=== PATIENT | female | born 1940 | race Hispanic/Latino ===

== ENCOUNTER 2018-08-26 19:49 | Inpatient (IN) | payer MEDICARE ==
[~2018-08-26] VITALS: Ht 162.6 cm; Wt 99.5 kg
[2018-08-26] MEDS ORDERED: SODIUM CHLORIDE 0.9% 1000ML 1,000 ML IV ONE (20:15)
[2018-08-26 20:39] LABS: BASOPHILS % 0.3 % (0.0-1.0); EOSINOPHILS # (AUTO) 0.1 (0.0-0.4); EOSINOPHILS % 1.1 % (0.0-6.0); HEMATOCRIT 23.7 % (34.2-44.1); HEMOGLOBIN 7.4 g/dL (12.0-16.0); LYMPHOCYTES # (AUTO) 1.6 (1.0-3.2); LYMPHOCYTES % 12.9 % (18.0-39.1); MEAN CORPUSCULAR HEMOGLOBIN 31.8 pg (28-32); MEAN CORPUSCULAR HGB CONC 31.2 g/dL (31-35); MEAN CORPUSCULAR VOLUME 101.7 fL (81-99); MONOCYTES % 7.7 % (4.4-11.3); NEUTROPHILS # (AUTO) 9.6 (2.1-6.9); NEUTROPHILS % 77.3 % (38.7-80.0); PLATELET COUNT 166 x10e3/uL (140-360); RED BLOOD COUNT 2.33 x10e6/uL (3.6-5.1); RED CELL DISTRIBUTION WIDTH 15.7 % (11.7-14.4)
[2018-08-26] MEDS ORDERED: ATENOLOL25 MG (20:40)
[2018-08-26] MEDS ORDERED: ESIDRIX25 MG PO (20:42)
[2018-08-26] MEDS ORDERED: DILTIAZEM 24HR240 MG PO (20:42)
[2018-08-26] MEDS ORDERED: REQUIP2 MG PO (20:44)
[2018-08-26] MEDS ORDERED: PANTOPRAZOLE 40 MG 10ML VIAL IV NR (20:45)
[2018-08-26 20:53] LABS: INR 1.03; PROTHROMBIN TIME 14.4 seconds (11.9-14.5)
[2018-08-26 20:54] LABS: PARTIAL THROMBOPLASTIN TIME 24.6 seconds (23.8-35.5)
[2018-08-26 21:03] LABS: ALANINE AMINOTRANSFERASE 15 IU/L (0-55); ALBUMIN 2.6 g/dL (3.5-5.0); ALBUMIN/GLOBULIN RATIO 0.7 (0.8-2.0); ALKALINE PHOSPHATASE 131 IU/L (40-150); BLOOD UREA NITROGEN 53 mg/dL (7-26); BUN/CREATININE RATIO 41 (6-25); CALCIUM 8.7 mg/dL (8.4-10.2); CARBON DIOXIDE 21 mmol/L (22-29); CHLORIDE 102 mmol/L (98-107); CREATINE KINASE 43 IU/L (29-168); CREATININE, SERUM 1.28 mg/dL (0.57-1.11); EST GLOMERULAR FILTRATION RATE 41 ML/MIN (60-); GLUCOSE 159 mg/dL (74-118); SODIUM 135 mmol/L (136-145)
--- NOTE | 2018-08-26 21:15 | Diagnostic Imaging Report ---
EXAMINATION: CHEST SINGLE (PORTABLE) INDICATION: Coughing up blood, shortness of breath COMPARISON: None FINDINGS: AP view TUBES and LINES: None. LUNGS: Lungs are well inflated. Lungs are clear. There is no evidence of pneumonia or pulmonary edema. PLEURA: No pleural effusion or pneumothorax. HEART AND MEDIASTINUM: The cardiomediastinal silhouette is unremarkable. BONES AND SOFT TISSUES: No acute osseous lesion. Surgical clips project over the left axilla. UPPER ABDOMEN: No free air under the diaphragm. IMPRESSION: No acute thoracic abnormality. If hemoptysis persists, chest CT with contrast may be obtained for further evaluation. Signed by: DR. Kd Butcher MD on 08/26/2018 9:12 PM
[2018-08-26] MEDS ORDERED: FUROSEMIDE INJ 10 MG/ML 2 ML VIAL IV PRN (21:45)
[2018-08-26] MEDS ORDERED: SODIUM CHLORIDE 0.9% 250ML 250 ML IV ONE (21:45)
[2018-08-26] MEDS ORDERED: OCTREOTIDE ACETATE 0.05 MG/ML AMP IV ONE (22:00)
--- OUTSIDE RECORDS SUMMARY | 2018-08-26 22:09 | XMS REPORT ---
Author Organization Unknown Address [address] [place] [address] Phone [phone] Care Team Providers Care Electronic Prepress Technician Name Role Phone Dennys Sameer Mccarthy Unavailable Unavailable Allergies Code Code System Name Reaction Severity Status Onset Amlodipine Besylate Active 03/20/2016 Medications Name Status Start Date Stop Date atenolol 25 mg tablet Active Not available diltiazem CD 240 mg capsule,extended release 24 hr Active Not available etodolac ER 500 mg tablet,extended release 24 hr Take 1 tablet every day by oral route for 90 days. 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 10/02/2015 History Irritable Bowel Syndrome Active 10/02/2015 History Non-alcoholic Fatty Liver Active 10/02/2015 History Chronic Kidney Disease Stage 3 Active 10/02/2015 History Chronic Renal Impairment Unknown 10/02/2015 History Low Back Pain Active 10/02/2015 History Disorder of Bone Active 10/02/2015 History Spondylolysis Active 10/02/2015 History Elevated Levels of Transaminase & Lactic Acid Dehydrogenase Active 10/02/2015 History Personal History of Primary Malignant Neoplasm of Breast Active 10/02/2015 History Conductive Hearing Loss, Bilateral Active 12/15/2017 Chronic Diastolic Heart Failure Active 12/15/2017 Secondary Hyperparathyroidism Active 12/22/2017 Procedures Date Name Performed by 12/30/2017 US, Echocardiogram, Transthoracic, Complete, W/ Color Flow [facility] [id number] (Work [address]) 12/31/2017 US, Echocardiogram, Transthoracic, Complete, W/ Color Flow [facility] [address] (Work [address]) Notes: 03/20/2016: Tympanoplasty; Surgery Date: 1973 Mastoidectomy; Surgery Date: 1973 S/P L Mastectomy 2* to Breast Ca; Surgery Date: 2002 Bladder suspension; Surgery Date: 2008 S/P Lap Hortencia 2* to Cholelithiasis; Surgery Date: 2009 Lab Results Date Name Specimen Result Interpretation Description Value Range Status Address 12/15/2017 Magnesium, Serum or Plasma Normal Magnesium 2.1 mg/dL 1.5- 2.5 mg/dL Final [facility] Laboratory: [address] [place] [address], [place] 12/15/2017 Phosphorus, Serum or Plasma Normal Phosphate (as Phosphorus) 3.6 mg/dL 2.1-4.3 mg/dL Final [facility] Laboratory: [address] [place] [address], [place] 12/15/2017 CBC W/ Auto Diff Wbc 6.35 x10*3/L 3.98-10.04 x10*3/L Final [facility] Laboratory: [address] Low Rbc 3.44 10*12/L 3.93-5.22 10*12/L Final [facility] Laboratory: [address] Hemoglobin 12.30 g/dL 11.20-15.70 g/dL Final [facility] Laboratory: [address] Hematocrit 35.6 % 34.1-44.9 % Final [facility] Laboratory: [address] High Mcv 103.5 fL 80.0-100.0 fL Final [facility] Laboratory: [address] High Mch 35.8 pg 25.6-32.2 pg Final [facility] Laboratory: [address] Mchc 34.6 g/dL 32.2-35.5 g/dL Final [facility] Laboratory: [address] RDW-SD 48.8 fL 36.4-46.3 fL Final [facility] Laboratory: [address] Low Platelet Count 118.0 k/uL 182.0-369.0 k/uL Final [facility] Laboratory: [address] Mpv 11.5 fL 7.5-11.5 fL Final [facility] Laboratory: [address] [place] High Neut% 81.5 % 34.0-71.1 % Final [facility] Laboratory: [address] [place] Low Lymph% 8.3 % 19.3-51.7 % Final [facility] Laboratory: [address] [place] Mon% 8.3 % 4.7-12.5 % Final [facility] Laboratory: [address] [place] Eos% 1.4 % 0.7-5.8 % Final [facility] Laboratory: [address] [place] Baso% 0.5 % 0.1-1.2 % Final [facility] Laboratory: [address] [place] Neut# 5.2 x10*3/L 1.6-6.1 x10*3/L Final [facility] Laboratory: [address] [place] Low Lymph# 0.5 x10*3/L 1.2-3.7 x10*3/L Final [facility] Laboratory: [address] [place] Mon# 0.5 x10*3/L 0.2-0.9 x10*3/L Final [facility] Laboratory: [address] [place] Eos# 0.09 x10*3/L 0.04-0.36 x10*3/L Final [facility] Laboratory: [address] [place] Baso# 0.03 x10*3/L 0.01-0.08 x10*3/L Final [facility] Laboratory: [address] [place] 12/15/2017 CMP, Serum or Plasma Alt 25 U/L 0-55 U/L Final [facility] Laboratory: [address] [place] High Ast 54 U/L 5-34 U/L Final [facility] Laboratory: [address] [place] Bun 14.5 mg/dL 9.8-20.1 mg/dL Final [facility] Laboratory: [address] [place] High Alk Phos 180 unit/L 40-150 unit/L Final [facility] Laboratory: [address] [place] High Glucose 119 mg/dL 70-99 mg/dL Final [facility] Laboratory: [address] [place] Low Albumin 3.1 g/dL 3.5-5.0 g/dL Final [facility] [address] [facility] Creatinine 0.95 mg/dL 0.57-1.11 mg/dL Final [facility] [address] [facility] Low eGFR Non- 57 mL/min/1.73m2 >60 mL/min/1.73m2 Final [facility] [address] [facility] High Total Bilirubin 1.7 mg/dL 0.2-1.2 mg/dL Final [facility]: [address] [facility] eGFR - >60 mL/min/1.73m2 >60 mL/min/1.73m2 Final [facility]: [address] [facility] Sodium 139 mEq/L 136-145 mEq/L Final [facility] Laboratory: [address] High Potassium 5.2 mEq/L 3.5-5.1 mEq/L Final [facility]: [address] [facility] Chloride 103 mmol/L 98-107 mmol/L Final [facility]: [address] [facility] Total Protein 8.0 g/dL 6.4-8.3 g/dL Final [facility]: [address] [facility] Calcium 9.2 mg/dL 8.4-10.2 mg/dL Final [facility] Laboratory: [address] Co2 25.9 mmol/L 23.0-31.0 mmol/L Final [facility] Laboratory: [address] [facility] Anion Gap 10 calc Final [facility] [address] [facility] 12/15/2017 Lipid Panel, Serum Hdl 48 mg/dL 40-60 mg/dL Final [facility] Laboratory: [address] [place] [address] Triglyceride 77 mg/dL 0-149 mg/dL Final [facility]: [address] VLDL Calc. 15 mg/dL Final [facility] Laboratory: [address] [place] [address] cholesterol/HDL Ratio 3.6 mg/dL Final [facility] Laboratory: [address] non-HDL Cholesterol Calc. 126 mg/dL 0-160 mg/dL Final [facility] Laboratory: [address] [place] [address] Cholesterol 174 mg/dL 0-199 mg/dL Final [facility] Laboratory: [address] [place] [address] LDL Calc. 111 mg/dL 0-130 mg/dL Final [facility] Laboratory: [address] [place] [address] 12/15/2017 T4, Total, Serum T4 Total 7.52 ug/dL 4.87-11.72 ug/dL Final [facility] Laboratory: [address] [place] [address] 12/15/2017 TSH, Serum or Plasma Tsh 1.164 uIU/mL 0.350-4.940 uIU/mL Final [facility] Laboratory: [address] [place] [address] 12/15/2017 Protein:creatinine Ratio, Urine Normal Creatinine, Random Urine 195 mg/dL 20-320 mg/dL Final [facility] Laboratory: [address] [place] [address] Normal Protein/creatinine Ratio 108 mg/g creat 21-161 mg/g creat Final [facility] Laboratory: [address] [place] [address] Normal Protein, Total, Random Ur 21 mg/dL 5-24 mg/dL Final [facility] Laboratory: [address] [place] [address] 12/15/2017 PTH (Parathyroid Hormone), Intact, Serum or Plasma High Parathyroid Hormone, Intact 107 pg/mL 14-64 pg/mL Final [facility] Laboratory: [address] [place] [address] 02/19/2017 CMP, Serum or Plasma High Glucose 108 mg/dL 65-99 mg/dL Final [facility] Laboratory: [address] [place] [address] Normal Urea Nitrogen (BUN) 15 mg/dL 7-25 mg/dL Final [facility] Laboratory: [address] [place] [address] High Creatinine 0.98 mg/dL 0.60-0.93 mg/dL Final [facility] Laboratory: [address] [place] [address] Low eGFR Non-afr. Gambian 57 mL/min/1.73m2 > or=60 mL/min/1.73m2 Final [facility] Laboratory: [address] [place] [address] Normal eGFR 66 mL/min/1.73m2 > or=60 mL/min/1.73m2 Final [facility]: [address] [facility] Normal BUN/creatinine Ratio 15 (calc) 6-22 (calc) Final [facility]: [address] [facility] Normal Sodium 138 mmol/L 135-146 mmol/L Final [facility] Laboratory: [address] Normal Potassium 3.7 mmol/L 3.5-5.3 mmol/L Final [facility] Laboratory: [address] [facility] Normal Chloride 102 mmol/L 98-110 mmol/L Final [facility]: [address] [facility] Normal Carbon Dioxide 28 mmol/L 20-31 mmol/L Final [facility] Laboratory: [address] [place] [address] Normal Calcium 8.8 mg/dL 8.6-10.4 mg/dL Final [facility] Laboratory: [address] Normal Protein, Total 7.2 g/dL 6.1-8.1 g/dL Final [facility]: [address] [facility] Low Albumin 3.3 g/dL 3.6-5.1 g/dL Final [facility]: [address] [facility] High Globulin 3.9 g/dL (calc) 1.9-3.7 g/dL (calc) Final [facility] Laboratory: [address] [facility] Low Albumin/globulin Ratio 0.8 (calc) 1.0-2.5 (calc) Final [facility] Laboratory: [address] [place] [address] Normal Bilirubin, Total 0.9 mg/dL 0.2-1.2 mg/dL Final [facility]: [address] [facility] High Alkaline Phosphatase 160 U/L 33-130 U/L Final [facility] Laboratory: [address] High Ast 45 U/L 10-35 U/L Final [facility]: [address] [facility] Normal Alt 20 U/L 6-29 U/L Final [facility] Laboratory: [address] 02/19/2017 Lipid Panel, Serum Normal Cholesterol, Total 151 mg/dL 125- 200 mg/dL Final [facility] Laboratory: [address] Low HDL Cholesterol 45 mg/dL > or=46 mg/dL Final [facility] Laboratory: [address] Normal Triglycerides 107 mg/dL <150 mg/dL Final [facility]: [address] Normal LDL-cholesterol 85 mg/dL (calc) <130 mg/dL (calc) Final [facility] Laboratory: [address] Normal Chol/hdlc Ratio 3.4 (calc) < or=5.0 (calc) Final [facility] Laboratory: [address] Normal Non HDL Cholesterol 106 mg/dL (calc) Final [facility] Laboratory: [address] Past Encounters 12/31/2017 Hypertensive Heart and Renal Disease with (Congestive) Heart Failure Sameer Noyola MD: [id number] [facility], [address] [address], [place]. 12/15/2017 Adult Health Examination; Morbid Obesity; Hypertensive Heart and Renal Disease with (Congestive) Heart Failure; Chronic Diastolic Heart Failure; Movement Disorder; History of Mastectomy; Chronic Kidney Disease Stage 3; Personal History of Primary Malignant Neoplasm of Breast; Non-alcoholic Fatty Liver; Conductive Hearing Loss, Bilateral; Disorder of Bone; Elevated Levels of Transaminase & Lactic Acid Dehydrogenase; Mixed Hyperlipidemia; Screening for Malignant Neoplasm of Colon; Screening for Osteoporosis; Screening for Malignant Neoplasm of Breast; Screening for Malignant Neoplasm of Cervix; Advance Directive Discussed with Patient; Depression Screening; Seasonal Allergic Rhinitis Sameer Noyola MD: [id number] [facility], [facility] [address] [address], Ph. 08/25/2017 Hypertensive Heart and Renal Disease with (Congestive) Heart Failure; History of Left Mastectomy; Personal History of Primary Malignant Neoplasm of Breast; Morbid Obesity KELLEY Saunders: [address] [facility], [facility] [address] [address], Ph. 02/19/2017 Hypertensive Heart and Renal Disease with (Congestive) Heart Failure; Pure Hypercholesterolemia; Movement Disorder; Low Back Pain KELLEY Saunders: [address] [facility], [address], [place] [address], Ph. Social History Smoking Status Never Smoker Vaccine List None recorded. Plan of Care Reminders Provider Appointments None recorded. Lab None recorded. Referral None recorded. Procedures None recorded. Surgeries None recorded. Imaging None recorded. Vitals 12/31/2017 10:00AM Ultrasound Height Weight BMI Blood Pressure 5 ft 5 in 222 lbs 36.9 kg/m2 122/76 mm[Hg] 12/15/2017 04:15PM AWV Height Weight BMI Blood Pressure 5 ft 5 in 220.8 lbs 36.7 kg/m2 139/80 mm[Hg] 08/25/2017 03:30PM Est Patient Height Weight BMI Blood Pressure 5 ft 5 in 219 lbs 36.4 kg/m2 141/59 mm[Hg] 02/19/2017 10:45AM Est Patient Height Weight BMI Blood Pressure 5 ft 5 in 225 lbs 37.4 kg/m2 189/75 mm[Hg] 03/20/2016 Height Weight BMI Blood Pressure 5 ft 5 in 230.4 lbs 38.34 kg/m2 123/67 mm[Hg] 02/05/2016 Height Weight BMI Blood Pressure 5 ft 5 in 235.8 lbs 39.23 kg/m2 148/65 mm[Hg] 10/02/2015 Height Weight BMI Blood Pressure 5 ft 5 in 233.2 lbs 38.80 kg/m2 134/79 mm[Hg] 02/20/2015 Height Weight BMI Blood Pressure 5 ft 5 in 227.6 lbs 37.87 kg/m2 120/80 mm[Hg] 02/13/2015 Height Weight BMI Blood Pressure 5 ft 5 in 227.6 lbs 37.87 kg/m2 150/82 mm[Hg] 03/22/2014 Height Weight 5 ft 5 in 221 lbs 03/15/2014 Height Weight 5 ft 5 in 224 lbs 03/08/2014 Height Weight 5 ft 5 in 231 lbs 02/25/2014 Height Weight 5 ft 5 in 228.6 lbs 01/17/2014 Height Weight 5 ft 5 in 236 lbs 09/07/2013 Height Weight 5 ft 5 in 227.6 lbs 05/04/2013 Height Weight 5 ft 5 in 225.2 lbs 04/20/2013 Height Weight 5 ft 5 in 229 lbs 03/31/2013 Height Weight 5 ft 2.5 in 22.6 lbs 02/04/2013 Height Weight 5 ft 2.5 in 225.4 lbs 12/15/2012 Height Weight 5 ft 2.5 in 224.8 lbs 10/26/2012 Height Weight 5 ft 2.5 in 225 lbs 07/28/2012 Weight 229 lbs 07/28/2012 Height 5 ft 2.5 in 04/24/2012 Height Weight 5 ft 2.5 in 231.6 lbs 12/05/2011 Height Weight 5 ft 2.5 in 226 lbs 11/06/2011 Height Weight 5 ft 2.5 in 222 lbs 10/19/2011 Height Weight 5 ft 2.5 in 221.8 lbs 10/08/2011 Height Weight 5 ft 2.5 in 218.4 lbs 07/09/2011 Height Weight 5 ft 2.5 in 218.6 lbs 05/28/2011 Height Weight 5 ft 2.5 in 216.4 lbs 04/16/2011 Height Weight 5 ft 2.5 in 213.8 lbs 12/19/2010 Height Weight 5 ft 2.5 in 203.2 lbs 12/14/2010 Height Weight 5 ft 2.5 in 201.6 lbs 12/10/2010 Height Weight 5 ft 2.5 in 201.4 lbs 11/23/2010 Height Weight 5 ft 2.5 in 195 lbs 11/14/2010 Weight 202 lbs 09/03/2010 Height Weight 5 ft 2.75 in 210 lbs 06/13/2010 Height Weight 5 ft 2.5 in 202.6 lbs 05/21/2010 Weight 202.6 lbs 04/10/2010 Height Weight 5 ft 2.5 in 205.4 lbs 03/07/2010 Height Weight 5 ft 2.5 in 208.4 lbs 08/16/2009 Weight 212 lbs 06/15/2009 Weight 212 lbs 02/13/2009 Height Weight 5 ft 3 in 223 lbs 01/31/2009 Height Weight 5 ft 3 in 207 lbs 12/01/2008 Weight 206 lbs 10/26/2008 Weight 208.5 lbs 10/10/2008 Weight 215.2 lbs 08/15/2008 Weight 215.5 lbs 07/05/2008 Weight 219.4 lbs 06/15/2008 Weight 216.6 lbs 03/10/2008 Weight 214.6 lbs 02/17/2008 Weight 215.1 lbs 01/07/2008 Weight 212.9 lbs 12/31/2007 Height Weight 5 ft 3 in 211.5 lbs 10/19/2007 Weight 214.8 lbs 09/09/2007 Weight 212.8 lbs 08/14/2007 Weight 214.2 lbs 05/08/2007 Weight 217 lbs 04/21/2007 Weight 220.4 lbs 02/17/2007 Height Weight 5 ft 3 in 217.4 lbs 02/11/2007 Height Weight 5 ft 3 in 218.3 lbs 01/27/2007 Weight 214.9 lbs 11/06/2006 Height Weight 5 ft 3 in 219.9 lbs 09/18/2006 Weight 216.9 lbs 09/15/2006 Weight 217 lbs 07/18/2006 Weight 225 lbs 07/18/2006 Height 5 ft 3 in 04/17/2006 Height Weight 5 ft 3 in 216 lbs 02/26/2006 Height Weight 5 ft 3 in 215 lbs 02/05/2006 Height Weight 5 ft 3 in 220 lbs 11/25/2005 Height Weight 5 ft 3 in 219 lbs 08/12/2005 Height Weight 5 ft 3 in 226 lbs 08/02/2005 Height Weight 5 ft 3 in 231 lbs 07/26/2005 Height Weight 5 ft 3 in 231 lbs 02/25/2005 Height Weight 5 ft 3 in 223 lbs 02/18/2005 Height Weight 5 ft 3 in 228 lbs 07/12/2004 Weight 229 lbs 07/03/2004 Weight 202 lbs 06/14/2004 Weight 200 lbs
--- OUTSIDE RECORDS SUMMARY | 2018-08-26 22:09 | XMS REPORT ---
Author Author [facility] Address Unknown Phone Unavailable Care Team Providers Care Press Puller Name Role Phone Beverley ROMAN Unavailable Unavailable Problems This patient has no known problems. Allergies, Adverse Reactions, Alerts This patient has no known allergies or adverse reactions. Medications This patient has no known medications. Results Test Description Test Time Test Comments Text Results Atomic Results Result Comments CHEST SINGLE (PORTABLE) 2018-08-26 21:09:00 [place] [address] Patient Name: MARU CHANEL MR #: [id number] : 1940 Age/Sex: 77/F Req #: [id number] Adm Physician: Ordered by: RITO ROMAN MD Report #: [id number] Location: ER Room/Bed: Procedure: [id number] DX/CHEST SINGLE (PORTABLE) Exam Date: 08/26/18 Exam Time: 2035 REPORT STATUS: Signed EXAMINATION: CHEST SINGLE (PORTABLE) INDICATION: Coughing up blood, shortness of breath COMPARISON: None FINDINGS: AP view TUBES and LINES: None. LUNGS: Lungs are well inflated. Lungs are clear. There is no evidence of pneumonia or pulmonary edema. PLEURA: No pleural effusion or pneumothorax. HEART AND MEDIASTINUM: The cardiomediastinal silhouette is unremarkable. BONES AND SOFT TISSUES: No acute osseous lesion. Surgical clips project over the left axilla. UPPER ABDOMEN: No free air under the diaphragm. IMPRESSION: No acute thoracic abnormality. If hemoptysis persists, chest CT with contrast may be obtained for further evaluation. Signed by: DR. Kd Butcher MD on 08/26/2018 9:12 PM Dictated By: KD BUTCHER MD 11 Transcribed By: ADAN on 08/26/182111 COPY TO: RITO ROMAN MD
[2018-08-26] MEDS ORDERED: SODIUM CHLORIDE 0.9% 100 ML ONE (22:22)
[2018-08-26] MEDS: PANTOPRAZOLE INJ 80 MG in SODIUM CHLORIDE 0.9% 100 ML IV SCH (22:30)
[2018-08-26] MEDS: SODIUM CHLORIDE 0.9% 1000ML 1,000 ML IV SCH (22:39)
[2018-08-26 23:55] VITALS: BP 122/72
[2018-08-27] VITALS (33 sets, daily range): BP systolic 106–143; BP diastolic 52–82
[2018-08-27] MEDS: OCTREOTIDE ACETATE 500 MCG in SODIUM CHLORIDE 0.9% 250ML 250 ML IV SCH ×3 (00:09→18:00)
[2018-08-27] MEDS: PANTOPRAZOLE INJ 80 MG in SODIUM CHLORIDE 0.9% 100 ML IV SCH (00:09)
[2018-08-27] MEDS: SODIUM CHLORIDE 0.9% 1000ML 1,000 ML IV SCH (00:09)
[2018-08-27] MEDS ORDERED: SODIUM CHLORIDE 0.9% 250ML 250 ML ONE (02:05)
[2018-08-27] MEDS ORDERED: ONDANSETRON HCL INJ 2 MG/ML VIAL IV PRN (06:30)
[2018-08-27] MEDS ORDERED: MORPHINE SULFATE INJ 4 MG/ML INJ IV PRN (06:30)
[2018-08-27 08:07] LABS: CLARITY,URINE CLEAR (CLEAR); COLOR,URINE COLORLESS (YELLOW); KETONES,URINE NEGATIVE (NEGATIVE); LEUKOCYTE ESTERASE ,URINE NEGATIVE (NEGATIVE); NITRITE,URINE NEGATIVE (NEGATIVE); PROTEIN,URINE DIPSTICK NEGATIVE (NEGATIVE)
[2018-08-27 08:08] LABS: BILIRUBIN,URINE NEGATIVE (NEGATIVE); URINE UROBILINOGEN 0.2 mg/dL (0.2 - 1)
[2018-08-27 08:17] LABS: BACTERIA,URINE MANY /HPF; EPITHELIAL CELLS,URINE RARE /LPF; WBC,URINE (MAN) 0-5 /HPF (0-5)
[2018-08-27] MEDS: PANTOPRAZOL 40MG/SOD CHL 0.9% 50 ML IV SCH ×3 (09:45→19:01)
[2018-08-27 10:38] LABS: HEMATOCRIT 28.2 % (34.2-44.1); HEMOGLOBIN 9.4 g/dL (12.0-16.0)
[2018-08-27 11:08] LABS: CHOL/HDL RATIO 3.7 (3.0-3.6)
[2018-08-27 15:20] LABS: HEMATOCRIT 30.8 % (34.2-44.1); HEMOGLOBIN 9.4 g/dL (12.0-16.0)
[2018-08-28] VITALS (8 sets, daily range): BP systolic 143–194; BP diastolic 64–80
[2018-08-28] MEDS: PANTOPRAZOL 40MG/SOD CHL 0.9% 50 ML IV SCH ×5 (01:00→20:45)
[2018-08-28] MEDS: SODIUM CHLORIDE 0.9% 1000ML 1,000 ML IV SCH ×2 (01:00→13:53)
[2018-08-28 02:22] LABS: HEMATOCRIT 27.6 % (34.2-44.1); HEMOGLOBIN 8.8 g/dL (12.0-16.0)
[2018-08-28] MEDS: OCTREOTIDE ACETATE 500 MCG in SODIUM CHLORIDE 0.9% 250ML 250 ML IV SCH ×2 (04:23→18:05)
[2018-08-28 04:49] LABS: BASOPHILS % 0.3 % (0.0-1.0); EOSINOPHILS # (AUTO) 0.2 (0.0-0.4); EOSINOPHILS % 2.5 % (0.0-6.0); HEMATOCRIT 26.6 % (34.2-44.1); HEMOGLOBIN 8.5 g/dL (12.0-16.0); LYMPHOCYTES # (AUTO) 0.9 (1.0-3.2); LYMPHOCYTES % 13.1 % (18.0-39.1); MEAN CORPUSCULAR HEMOGLOBIN 30.8 pg (28-32); MONOCYTES # (AUTO) 0.6 (0.2-0.8); MONOCYTES % 9.1 % (4.4-11.3); NEUTROPHILS % 74.6 % (38.7-80.0); PLATELET COUNT 108 x10e3/uL (140-360); RED BLOOD COUNT 2.76 x10e6/uL (3.6-5.1); RED CELL DISTRIBUTION WIDTH 18.3 % (11.7-14.4)
[2018-08-28 04:58] LABS: MEAN CORPUSCULAR VOLUME 96.4 fL (81-99)
[2018-08-28 05:14] LABS: ANION GAP 11.1 mmol/L (8-16); CALCIUM 8.3 mg/dL (8.4-10.2); CREATININE, SERUM 1.38 mg/dL (0.57-1.11)
[2018-08-28 05:18] LABS: POTASSIUM 3.1 mmol/L (3.5-5.1)
[2018-08-28 05:35] LABS: FERRITIN 53.01 ng/mL (4.63-204.00)
[2018-08-28 06:12] LABS: FOLATE 14.8 ng/mL (7.0-15.4)
[2018-08-28] MEDS ORDERED: POTASSIUM CHLORIDE 20 MEQ TAB CR PO SCH ×2 (08:45→09:15)
--- NOTE | 2018-08-28 09:32 | Operative Report ---
DATE OF PROCEDURE: August 28, 2018 REFERRING PHYSICIAN: Dr. Kirk Briggs PROCEDURE PERFORMED: Esophagogastroduodenoscopy with biopsies. INDICATIONS FOR EGD: Hematemesis. MEDICATION: Patient was done under MAC. Please see anesthesiologist's note. PROCEDURE: With the patient in the left lateral decubitus position, the flexible fiberoptic Olympus gastroscope was introduced into the esophagus under direct visualization without any difficulty. A large varix was noted in the esophagus without active bleeding or stigmata of recent hemorrhage. The scope was then advanced with ease into the stomach. Mucosa overlying the antrum and the body revealed some patchy areas of erythema. Multiple gastric ulcers were noted in the antrum up to 6 mm in size. Some with heaped up margins without active bleeding or stigmata of recent hemorrhage. Biopsies were obtained. The scope was then advanced with ease into the pylorus all the way to the 2nd portion of the duodenum. The scope was then withdrawn slowly. Mucosa overlying the proximal 2nd portion and the duodenal bulb appeared to be within normal limits. The scope was then withdrawn back into the stomach and retroflexed. Fundal varices were noted with some involvement of the cardia without active bleeding or stigmata of recent hemorrhage. The scope was then straightened out. It was subsequently withdrawn. Patient tolerated the procedure well. IMPRESSION 1. Single varix esophagus without active bleeding or stigmata of recent hemorrhage. 2. Fundal varices without active bleeding or stigmata of recent hemorrhage. 3. Gastric ulcers, antrum, multiple, without active bleeding or stigmata of recent hemorrhage. Biopsies obtained. PLAN 1. Follow up histology. 2. Acute hepatitis profile. 3. Alpha fetoprotein. 4. Ultrasound of the liver. 5. Inderal 10 mg 1 p.o. b.i.d. Job#: [id number] RI cc:KIRK BRIGGS MD
[2018-08-28] MEDS: CEFTRIAXONE SOD 1 GM VIAL IV SCH ×2 (10:55→21:20)
[2018-08-28] MEDS: OYST-CAL-D 500MG TABLET PO SCH (10:55)
[2018-08-28 12:32] LABS: HEMATOCRIT 24.8 % (34.2-44.1)
--- NOTE | 2018-08-28 14:09 | Diagnostic Imaging Report ---
PROCEDURE:ABDOMINAL ULTRASOUND COMPARISON:None. INDICATIONS:CIRRHOSIS OF LIVER FINDINGS: Liver: Measures 13.5 cm in the midclavicular line. Normal hepatic parenchymal echogenicity. No focal mass. Slightly irregular contour of the liver. Main portal vein: Measures 1.1 cm with normal Hepatopetal flow. Gallbladder: Removed Common Bile Duct: Measures 0.7 cm. No echogenic filling defect. Sonographic Penaloza's sign: Negative Right kidney: Measures 9.0 x 3.9 x 4.4 cm. No solid or cystic mass, echogenic calculi, or hydronephrosis. Normal parenchymal echogenicity. Left kidney: Measures 7.8 x 4.5 x 4.1 cm. No solid or cystic mass, echogenic calculi, or hydronephrosis. Normal parenchymal echogenicity. Spleen: Measures 12.1 x 4.1 x 5.2 cm. No mass. Pancreas: Not adequately seen Inferior vena cava: Not seen Aorta: Not seen Ascites: None. CONCLUSION: 1. No acute sonographic abnormality. 2. Slightly irregular contour of the liver. 3. Splenomegaly. Jhon Rossi D.O. Dictated by: Jhon Rossi D.O. on 08/28/2018 at 14:18 Electronically approved by: Jhon Rossi D.O. on 08/28/2018 at 14:18
[2018-08-28] MEDS: PROPRANOLOL HCL 10 MG TAB PO SCH (18:05)
[2018-08-28] MEDS ORDERED: FENTANYL CITRATE/PF 100MCG/2 ML INJ ONE (19:12)
[2018-08-28] MEDS ORDERED: LIDOCAINE HCL 2% LOCAL INJ 5 ML SDV VIAL INJ ONE (19:43)
[2018-08-28] MEDS ORDERED: GLUCAGON FOR INJ 1 MG VIAL ONE (19:43)
[2018-08-28] MEDS ORDERED: PROPOFOL IV EMULSION 10 MG/ML 20 ML VIAL ONE (19:43)
[2018-08-29] VITALS (7 sets, daily range): BP systolic 135–186; BP diastolic 67–97
[2018-08-29] MEDS: PANTOPRAZOL 40MG/SOD CHL 0.9% 50 ML IV SCH ×6 (00:01→20:39)
[2018-08-29] MEDS: SODIUM CHLORIDE 0.9% 1000ML 1,000 ML IV SCH ×3 (01:05→20:39)
[2018-08-29] MEDS ORDERED: ROPINIROLE HCL 2 MG TAB PO SCH ×3 (04:15→21:00)
[2018-08-29] MEDS: OCTREOTIDE ACETATE 500 MCG in SODIUM CHLORIDE 0.9% 250ML 250 ML IV SCH ×3 (04:50→20:30)
[2018-08-29 04:53] LABS: BASOPHILS % 0.6 % (0.0-1.0); EOSINOPHILS # (AUTO) 0.3 (0.0-0.4); EOSINOPHILS % 4.9 % (0.0-6.0); HEMOGLOBIN 7.9 g/dL (12.0-16.0); LYMPHOCYTES # (AUTO) 0.9 (1.0-3.2); LYMPHOCYTES % 18.2 % (18.0-39.1); MEAN CORPUSCULAR HEMOGLOBIN 31.7 pg (28-32); MEAN CORPUSCULAR HGB CONC 31.6 g/dL (31-35); MONOCYTES # (AUTO) 0.5 (0.2-0.8); NEUTROPHILS # (AUTO) 3.4 (2.1-6.9); NEUTROPHILS % 65.9 % (38.7-80.0); PLATELET COUNT 93 x10e3/uL (140-360); RED BLOOD COUNT 2.49 x10e6/uL (3.6-5.1); RED CELL DISTRIBUTION WIDTH 17.9 % (11.7-14.4)
[2018-08-29 05:01] LABS: MEAN CORPUSCULAR VOLUME 100.4 fL (81-99)
[2018-08-29 05:11] LABS: ANION GAP 10.3 mmol/L (8-16); CALCIUM 7.3 mg/dL (8.4-10.2); CREATININE, SERUM 0.97 mg/dL (0.57-1.11); MAGNESIUM 1.8 MG/DL (1.3-2.1); POTASSIUM 3.3 mmol/L (3.5-5.1)
[2018-08-29] MEDS ORDERED: FUROSEMIDE INJ 10 MG/ML 2 ML VIAL IV ONE (08:15)
[2018-08-29] MEDS: PROPRANOLOL HCL 10 MG TAB PO SCH ×2 (08:44→17:10)
[2018-08-29] MEDS: OYST-CAL-D 500MG TABLET PO SCH (08:44)
[2018-08-29] MEDS: CEFTRIAXONE SOD 1 GM VIAL IV SCH ×2 (08:44→20:39)
[2018-08-29] MEDS ORDERED: CALCIUM GLUCONATE 10% INJ 9.3 MEQ in SODIUM CHLORIDE 0.9% 100 ML 100 ML IV ONE (09:00)
[2018-08-29] MEDS ORDERED: SODIUM CHLORIDE 0.9% 250ML 250 ML IV ONE (09:00)
[2018-08-29] MEDS ORDERED: POTASSIUM CHLORIDE 20 MEQ TAB CR PO ONE (09:00)
[2018-08-29] MEDS: HYDRALAZINE HCL 20 MG/ML VIAL IV PRN ×2 (16:00→22:26)
[2018-08-29] MEDS ORDERED: SODIUM CHLORIDE 0.9% 250ML 250 ML ONE (16:58)
[2018-08-30] VITALS: BP 143/65
[2018-08-30] MEDS: PANTOPRAZOL 40MG/SOD CHL 0.9% 50 ML IV SCH (02:45)
[2018-08-30 03:40] LABS: BASOPHILS % 0.5 % (0.0-1.0); EOSINOPHILS # (AUTO) 0.3 (0.0-0.4); EOSINOPHILS % 4.8 % (0.0-6.0); HEMATOCRIT 30.2 % (34.2-44.1); LYMPHOCYTES # (AUTO) 0.9 (1.0-3.2); LYMPHOCYTES % 15.9 % (18.0-39.1); MEAN CORPUSCULAR HEMOGLOBIN 30.8 pg (28-32); MEAN CORPUSCULAR HGB CONC 33.1 g/dL (31-35); MONOCYTES # (AUTO) 0.5 (0.2-0.8); MONOCYTES % 9.3 % (4.4-11.3); NEUTROPHILS # (AUTO) 3.9 (2.1-6.9); NEUTROPHILS % 69.1 % (38.7-80.0); RED BLOOD COUNT 3.25 x10e6/uL (3.6-5.1); RED CELL DISTRIBUTION WIDTH 18.4 % (11.7-14.4)
[2018-08-30 03:42] LABS: MEAN CORPUSCULAR VOLUME 92.9 fL (81-99)
[2018-08-30 03:43] LABS: PLATELET COUNT 103 x10e3/uL (140-360)
[2018-08-30 03:53] LABS: ANION GAP 12.3 mmol/L (8-16); BLOOD UREA NITROGEN 19 mg/dL (7-26); BUN/CREATININE RATIO 21 (6-25); CARBON DIOXIDE 23 mmol/L (22-29); CHLORIDE 105 mmol/L (98-107); EST GLOMERULAR FILTRATION RATE > 60 ML/MIN (60-); GLUCOSE 126 mg/dL (74-118); MAGNESIUM 1.5 MG/DL (1.3-2.1); POTASSIUM 3.3 mmol/L (3.5-5.1); SODIUM 137 mmol/L (136-145)
[2018-08-30 03:54] LABS: CALCIUM 8.6 mg/dL (8.4-10.2)
[2018-08-30 04:00] VITALS: BP 168/73
[2018-08-30] MEDS ORDERED: ROPINIROLE HCL 2 MG TAB PO SCH (04:15)
[2018-08-30] MEDS: OCTREOTIDE ACETATE 500 MCG in SODIUM CHLORIDE 0.9% 250ML 250 ML IV SCH (05:42)
[2018-08-30] MEDS: HYDRALAZINE HCL 20 MG/ML VIAL IV PRN (06:12)
[2018-08-30] MEDS ORDERED: POTASSIUM CHLORIDE 20 MEQ TAB CR PO STA (07:17)
[2018-08-30] MEDS ORDERED: Calcium Carbonate PO (07:18)
[2018-08-30] MEDS ORDERED: ceftin PO (07:18)
[2018-08-30] MEDS ORDERED: PROPRANOLOL HCL10 MG PO ×2 (07:18→13:18)
[2018-08-30] MEDS ORDERED: CEFTIN PO (07:19)
[2018-08-30] MEDS ORDERED: PANTOPRAZOLE SO40 MG PO (07:27)
[2018-08-30] MEDS ORDERED: ACETAMINOPHEN/CODEINE 300MG - 30MG TAB PO PRN (07:45)
[2018-08-30 08:00] VITALS: BP 132/60
[2018-08-30] MEDS: CEFTRIAXONE SOD 1 GM VIAL IV SCH (08:19)
[2018-08-30] MEDS: OYST-CAL-D 500MG TABLET PO SCH (08:21)
[2018-08-30] MEDS: PROPRANOLOL HCL 10 MG TAB PO SCH (08:21)
[2018-08-30] MEDS ORDERED: DILTIAZEM HCL ER 120 MG CAPCR PO SCH (09:00)
[2018-08-30] MEDS ORDERED: HYDROCHLOROTHIAZIDE 25 MG TAB PO SCH (09:00)
[2018-08-30] MEDS ORDERED: CYANOCOBALAMIN INJ 1,000 MCG/ML VIAL IM SCH (09:00)
[2018-08-30 09:45] VITALS: BP 134/60
[2018-08-30 12:00] VITALS: BP 106/53
[2018-08-30] MEDS ORDERED: PROPRANOLOL HCL 10 MG TAB PO SCH (17:00)
--- NOTE | 2018-08-31 16:42 | Discharge Summary ---
ADMISSION DIAGNOSES 1. Gastrointestinal bleed. 2. Hypertension. 3. Chronic kidney disease 3. 4. Hyponatremia. 5. Leukocytosis. 6. Morbid obesity. 7. Restless leg syndrome. 8. Hyperparathyroidism. 9. Hyperlipidemia. DISCHARGE DIAGNOSES 1. Gastrointestinal bleed. 2. Hypertension. 3. Chronic kidney disease 3. 4. Hyponatremia. 5. Leukocytosis. 6. Morbid obesity. 7. Restless leg syndrome. 8. Hyperparathyroidism. 9. Hyperlipidemia. 10. Gastritis. 11. Cirrhosis. 12. Esophageal varix. 13. Fundal varices. 14. Gastric ulcer. MEDICAL HISTORY: The patient has a history of hypertension, restless leg syndrome, left breast cancer, chronic back pain, chronic diastolic heart failure, chronic kidney disease 3, irritable bowel syndrome, hypercholesterolemia, hyperparathyroidism, bilateral hearing loss and [place]. PAST SURGICAL HISTORY: Left breast lumpectomy. FAMILY HISTORY: The patient's sister and dad have diabetes. The patient's sister has cancer. SOCIAL HISTORY: The patient denies tobacco, alcohol and illicit drug use. HOSPITAL COURSE: A 77-year-old female with nausea and vomiting that began yesterday morning. The emesis was deep red with clots. She threw up 2 times. She denies abdominal pain, diarrhea and dizziness. She also admits to bright red blood per rectum upon admission into the ICU. On admission, the patient was started on octreotide, Protonix infusion, and GI was consulted. The patient was given 2 units of packed red blood cells. Her blood pressure was controlled off blood pressure medicine initially. GFR was 41, creatinine 1.28, sodium 135. The patient had mild leukocytosis. A UA and culture were negative. The patient also had a chest x-ray which was negative. Ultrasound of the abdomen ordered by GI found no acute sonographic abnormalities, slight irregular contour of the liver, splenomegaly. The patient had an EGD on 08/28 that showed esophageal varix, gastritis, fundal varices and gastric ulcer. Per GI, the patient also has cirrhosis, but was unaware of the history. Urine culture came back positive for E. coli. The patient was started on Ceftin and was given . The patient required 4 units of blood prior to discharge. On the day of discharge, her hemoglobin is 10. The patient ENDS ABRUPTLY, INCOMPLETE. Dictated by: Meliza Balbuena NP KIRK MOORE MD Job#: [id number] [facility]
[2018-10-09] MEDS ORDERED: VERAPAMIL ER120 MG (10:19)
[2018-10-09] MEDS ORDERED: CEFUROXIME250 MG PO (10:19)
[2018-10-09] MEDS ORDERED: ATENOLOL50 MG (10:19)
[2018-10-09] MEDS ORDERED: ASPIRIN81 MG (10:19)
[2018-10-09] MEDS ORDERED: MIRAPEX0.25 MG PO (10:19)
[2018-10-09] MEDS ORDERED: FERROUS SULFAT325 MG (10:19)
== END 2018-08-30 14:24 | disposition home or self-care (01) | DRG 378 ==
LOC: ER 19:49 → ERHOLD 22:05 → ICU 23:51 → MED/SURG2 08-27 09:07
PROVIDERS: ADMIT Internal Medicine; ATTEND Internal Medicine
PROC: 30233N1 Transfusion of Nonautologous Red Blood Cells into Peripheral Vein, Percutaneous Approach (ICD-10-PCS; principal; 2018-08-27)
PROC: 0DB78ZX Excision of Stomach, Pylorus, Via Natural or Artificial Opening Endoscopic, Diagnostic (ICD-10-PCS; 2018-08-28)
DX: K92.0 Hematemesis (principal); I13.0 Hypertensive heart and chronic kidney disease with heart failure and stage 1 through stage 4 chronic kidney disease, or unspecified chronic kidney disease; I50.32 Chronic diastolic (congestive) heart failure; E87.1 Hypo-osmolality and hyponatremia; D62 Acute posthemorrhagic anemia; N39.0 Urinary tract infection, site not specified; N18.3 Chronic kidney disease, stage 3 (moderate); E66.01 Morbid (severe) obesity due to excess calories; K29.50 Unspecified chronic gastritis without bleeding; K74.60 Unspecified cirrhosis of liver; I85.10 Secondary esophageal varices without bleeding; I86.4 Gastric varices; K25.9 Gastric ulcer, unspecified as acute or chronic, without hemorrhage or perforation; E78.5 Hyperlipidemia, unspecified; E21.3 Hyperparathyroidism, unspecified; G25.81 Restless legs syndrome; Z85.3 Personal history of malignant neoplasm of breast; H91.93 Unspecified hearing loss, bilateral; I25.2 Old myocardial infarction; B96.20 Unspecified Escherichia coli [E. coli] as the cause of diseases classified elsewhere; E87.6 Hypokalemia
CPT/HCPCS: 36415; 43239; 71045; 76700; 80048; 80053; 80061; 81001; 82105; 82140; 82270; 82550; 82553; 82607; 82728; 82746; 82948; 83540; 83735; 83970; 84466; 84484; 85014; 85018; 85025; 85045; 85610; 85730; 86850; 86900; 86920; 87086; 87186; 88305; 88312; 93005; 96361; 99284; C2617; J0360; J0610; J0696; J1610; J1940; J2001; J2353; J2354; J3420; J7030; J7050; P9016

== ENCOUNTER → 2018-10-13 | Day surgery (SDC) | payer MEDICARE ==
[2018-10-09 10:32] LABS: BASOPHILS % 0.8 % (0.0-1.0); EOSINOPHILS # (AUTO) 0.2 (0.0-0.4); EOSINOPHILS % 3.2 % (0.0-6.0); HEMATOCRIT 30.8 % (34.2-44.1); LYMPHOCYTES # (AUTO) 0.6 (1.0-3.2); LYMPHOCYTES % 12.5 % (18.0-39.1); MEAN CORPUSCULAR HEMOGLOBIN 33.2 pg (28-32); MEAN CORPUSCULAR HGB CONC 32.5 g/dL (31-35); MEAN CORPUSCULAR VOLUME 102.3 fL (81-99); MONOCYTES # (AUTO) 0.5 (0.2-0.8); MONOCYTES % 10.9 % (4.4-11.3); NEUTROPHILS # (AUTO) 3.6 (2.1-6.9); NEUTROPHILS % 72.2 % (38.7-80.0); PLATELET COUNT 107 x10e3/uL (140-360); RED BLOOD COUNT 3.01 x10e6/uL (3.6-5.1); RED CELL DISTRIBUTION WIDTH 18.4 % (11.7-14.4)
[2018-10-09 10:41] LABS: INR 0.99
[2018-10-09 10:42] LABS: PARTIAL THROMBOPLASTIN TIME 35.2 seconds (23.8-35.5)
[2018-10-09 11:50] LABS: ALBUMIN 3.1 g/dL (3.5-5.0); ALBUMIN/GLOBULIN RATIO 0.7 (0.8-2.0); ANION GAP 14.7 mmol/L (8-16); CALCIUM 8.9 mg/dL (8.4-10.2); CREATININE, SERUM 1.11 mg/dL (0.57-1.11)
[2018-10-09 12:22] LABS: POTASSIUM 2.7 mmol/L (3.5-5.1)
[~2018-10-13] MED LIST: ASPIRIN81 MG; ATENOLOL25 MG; ATENOLOL50 MG; CEFTIN PO; CEFUROXIME250 MG PO; Calcium Carbonate PO; DILTIAZEM 24HR240 MG PO; ESIDRIX25 MG PO; FENTANYL CITRATE/PF 100MCG/2 ML INJ ONE; FERROUS SULFAT325 MG; MIRAPEX0.25 MG PO; PANTOPRAZOLE SO40 MG PO; PROPOFOL IV EMULSION 10 MG/ML 50 ML VIAL ONE; PROPRANOLOL HCL10 MG PO; REQUIP2 MG PO; VERAPAMIL ER120 MG; ceftin PO
[2018-10-13 11:04] VITALS: BP 150/65
== END | disposition home or self-care (01) ==
LOC: OR 07:55
PROVIDERS: ATTEND Internal Medicine Gastroenterology
DX: Z12.11 Encounter for screening for malignant neoplasm of colon (principal); D12.3 Benign neoplasm of transverse colon; D12.4 Benign neoplasm of descending colon; K57.30 Diverticulosis of large intestine without perforation or abscess without bleeding; K64.8 Other hemorrhoids; R01.1 Cardiac murmur, unspecified; K74.60 Unspecified cirrhosis of liver; I12.9 Hypertensive chronic kidney disease with stage 1 through stage 4 chronic kidney disease, or unspecified chronic kidney disease; N18.9 Chronic kidney disease, unspecified; Z01.810 Encounter for preprocedural cardiovascular examination; Z01.812 Encounter for preprocedural laboratory examination; Z79.82 Long term (current) use of aspirin; Z85.3 Personal history of malignant neoplasm of breast
CPT/HCPCS: 36415; 45378; 45384; 45385; 80053; 84132; 85025; 85610; 85730; 88305; 93005

== ENCOUNTER → 2018-12-23 | Outpatient (CLI) | payer MEDICARE ==
[~2018-12-23] MED LIST changes: -FENTANYL CITRATE/PF 100MCG/2 ML INJ ONE; -PROPOFOL IV EMULSION 10 MG/ML 50 ML VIAL ONE
--- NOTE | 2018-12-24 02:29 | Diagnostic Imaging Report ---
ADDENDUM #1 Addendum: Additional IMPRESSION: 3. Patchy airspace opacity in the right lower lobe, which may represent pneumonia in the appropriate clinical setting or aspiration. Recommend chest PA and lateral for further evaluation. Signed by: Dr. Ramesh Fernandes M.D. on 12/24/2018 2:31 AM ORIGINAL REPORT Examination: MRI abdomen without contrast/MRCP TECHNIQUE: Axial T1 in and out of phase, coronal T2 and nonfat sat, axial T2 fat-sat, axial glenohumeral and ADC MR images of the abdomen were performed. No intravenous gadolinium was given. Heavily T2-weighted MRCP images were also performed, including thick and thin slab MRCP reflect ASSETT, coronal 2-D FIESTA and 3-D reconstructions. CLINICAL HISTORY: Dilated bile duct, abdominal pain COMPARISON: Abdominal ultrasound 08/27/2018 FINDINGS: LACK OF GADOLINIUM DECREASES SENSITIVITY FOR DETECTION OF INTRA-ABDOMINAL PATHOLOGY. Exam limited by patient's inability to breath-hold. LOWER THORAX: Patchy opacity in the right lower lobe (series 5, images 10-12). LIVER: Normal hepatic size. Nodular contour. No focal T2 hyperintense or restricted diffusion hepatic lesions. BILIARY: Mild to moderate central intrahepatic biliary ductal dilation, left greater than right. The common bile duct is mildly to moderately dilated, measuring 1.0 cm at the raffi hepatis and 7 mm at the pancreatic head. No intraluminal filling defects, strictures or extrinsic compressions. Normal tapering to the ampulla. Relatively low insertion of the cystic duct. Magnetic susceptibility artifact from cholecystectomy clips. PANCREAS: Focal dilation of the distal portion of the pancreatic duct proximal to the ampulla, which measures approximately 8.5 mm (for example series 8, image 24. There is progressive tapering to normal diameter at the pancreatic neck and proximal body. No definite strictures. No intraluminal filling defects. No focal lesions are identified. SPLEEN: Mild splenomegaly, measuring 15.0 cm in AP diameter. ADRENALS: No nodules. KIDNEYS: No hydronephrosis or T2 hyperintense mass in the imaged portion of the kidneys. PERITONEUM / RETROPERITONEUM: No upper abdominal free fluid. LYMPH NODES: No upper abdominal lymphadenopathy. VESSELS: Normal flow voids are identified.. BONES AND SOFT TISSUES: No abnormal bone marrow signal. 1.6 cm hemangioma at the T10 vertebral body (series 8, image 11). No soft tissue abnormalities.. IMPRESSION: 1. Mild to moderate central intrahepatic biliary ductal dilation, left greater than right. Mildly to moderately dilated common bile duct measuring 1.0 cm at the raffi hepatis. No MR evidence of choledocholithiasis, strictures or extrinsic compressions. Findings may be secondary to postcholecystectomy status. 2. Focal dilation of the distal portion of the pancreatic duct proximal to the ampulla, without focal lesion or intraductal calculus. There is progressive tapering to normal diameter at the pancreatic neck and proximal body. No definite strictures. Signed by: Dr. Ramesh Fernandes M.D. on 12/24/2018 2:26 AM
== END ==
LOC: MRI 06:57
PROVIDERS: ATTEND Internal Medicine Gastroenterology
DX: K83.8 Other specified diseases of biliary tract (principal)
CPT/HCPCS: 74181

== ENCOUNTER → 2019-02-23 | Day surgery (SDC) | payer MEDICARE ==
[2019-02-16 15:47] LABS: BASOPHILS % 0.7 % (0.0-1.0); EOSINOPHILS # (AUTO) 0.2 (0.0-0.4); EOSINOPHILS % 3.7 % (0.0-6.0); HEMATOCRIT 31.2 % (34.2-44.1); HEMOGLOBIN 10.4 g/dL (12.0-16.0); LYMPHOCYTES % 16.4 % (18.0-39.1); MEAN CORPUSCULAR HEMOGLOBIN 34.8 pg (28-32); MEAN CORPUSCULAR HGB CONC 33.3 g/dL (31-35); MEAN CORPUSCULAR VOLUME 104.3 fL (81-99); MONOCYTES # (AUTO) 0.6 (0.2-0.8); MONOCYTES % 10.5 % (4.4-11.3); NEUTROPHILS % 68.2 % (38.7-80.0); PLATELET COUNT 133 x10e3/uL (140-360); RED BLOOD COUNT 2.99 x10e6/uL (3.6-5.1)
[2019-02-16 15:58] LABS: INR 1.01; PROTHROMBIN TIME 13.8 seconds (11.9-14.5)
[2019-02-16 15:59] LABS: PARTIAL THROMBOPLASTIN TIME 35.5 seconds (23.8-35.5)
[2019-02-16 16:05] LABS: ALBUMIN/GLOBULIN RATIO 0.7 (0.8-2.0); ANION GAP 12.2 mmol/L (8-16); CALCIUM 9.4 mg/dL (8.4-10.2); CREATININE, SERUM 1.05 mg/dL (0.57-1.11); POTASSIUM 4.2 mmol/L (3.5-5.1)
[~2019-02-23] MED LIST changes: -ATENOLOL50 MG; +ATENOLOL50 MG PO; +FENTANYL CITRATE/PF 100MCG/2 ML INJ ONE; +POTASSIUM CHLO20 ME1 PO; +PROPOFOL IV EMULSION 10 MG/ML 50 ML VIAL ONE
[2019-02-23 09:44] VITALS: BP 127/50
== END | disposition home or self-care (01) ==
LOC: OR 06:50
PROVIDERS: ATTEND Internal Medicine Gastroenterology
DX: Z09 Encounter for follow-up examination after completed treatment for conditions other than malignant neoplasm (principal); K74.69 Other cirrhosis of liver; I85.10 Secondary esophageal varices without bleeding; I86.4 Gastric varices; K29.50 Unspecified chronic gastritis without bleeding; K29.60 Other gastritis without bleeding; K85.90 Acute pancreatitis without necrosis or infection, unspecified; K83.8 Other specified diseases of biliary tract; K21.9 Gastro-esophageal reflux disease without esophagitis; B96.81 Helicobacter pylori [H. pylori] as the cause of diseases classified elsewhere; I10 Essential (primary) hypertension; E78.5 Hyperlipidemia, unspecified; R89.4 Abnormal immunological findings in specimens from other organs, systems and tissues; R60.0 Localized edema; Z01.810 Encounter for preprocedural cardiovascular examination; Z01.812 Encounter for preprocedural laboratory examination; Z79.82 Long term (current) use of aspirin; Z68.38 Body mass index [BMI] 38.0-38.9, adult; Z85.3 Personal history of malignant neoplasm of breast
CPT/HCPCS: 36415; 43239; 43244; 80053; 85025; 85610; 85730; 93005; J2704; 43235

== ENCOUNTER 2019-05-26 11:02 | Emergency (ER) | payer MEDICARE ==
[~2019-05-26] VITALS: Ht 162.6 cm; Wt 99.3 kg
[~2019-05-26 11:02] MED LIST changes: -FENTANYL CITRATE/PF 100MCG/2 ML INJ ONE; -PROPOFOL IV EMULSION 10 MG/ML 50 ML VIAL ONE
--- OUTSIDE RECORDS SUMMARY | 2019-05-26 11:05 | XMS REPORT | Clinical Summary ---
Author Author WHITNEY [facility] Camera SystemsSaint Alphonsus Regional Medical CenterTraitWare [facility] Organization [facility] Address Unknown Phone Unavailable Care Team Providers Care Sales Support Rep Name Role Phone Sameer Noyola MD PCP Allergies No Known Allergies Medications End Date Status Medication Sig Dispensed Refills Start Date Active hydroCHLOROthiazide Take 25 mg by 1 (HYDRODIURIL) 25 MG mouth daily . 9 tablet Active aspirin 81 MG EC tablet Take 81 mg by 0 mouth daily. Active atenolol (TENORMIN) 50 MG Take 50 mg by 0 tablet mouth daily. Active pantoprazole (PROTONIX) Take 40 mg by 0 40 MG tablet mouth daily. Active potassium chloride Take 20 mEq 0 (KLOR-CON) 20 mEq packet by mouth daily. Active pramipexole (MIRAPEX) Take 0.25 mg 0 0.25 MG tablet by mouth daily. Active verapamil (CALAN) 120 MG Take 120 mg 0 tablet by mouth daily. Active cholecalciferol, vitamin Take 1.25 mg 0 D3, (VITAMIN D3 ORAL) by mouth once a week. Active tetracycline HCl Take by mouth 0 (TETRACYCLINE ORAL) daily. Active AMOXICILLIN ORAL Take by mouth 0 daily. 03/21/2020 Active propranolol (INDERAL) 20 Take 1 tablet 60 tablet 6 MG tablet (20 mg total) 9 by mouth 2 (two) times daily. 03/22/2019 Discontinued propranolol (INDERAL) 10 TAKE 1 TABLET 0 MG tablet BY MOUTH 9 Daily Active Problems Problem Noted Date Other cirrhosis of liver 03/22/2019 Last Assessment & Plan: Diagnosis based on the constellation of clinical findings, laboratory parameters and imaging. Etiology is most likely due to COURTNEY. She has intrahepatic biliary dilatation - unclear etiology possible related to history of cholecystomy vs underlying liver disease. Her condition has decompensated with features of portal hypertension and varices. . We will get labs today to calculate the MELD score and complete a comprehensive evaluation for other causes of cirrhosis. I ordered MRI with MRCP to assess anatomy and bile ducts. Cirrhosis guidelines were reviewed. Portal hypertension 03/22/2019 Last Assessment & Plan: Portal hypertension manifested by esophageal varices, portal hypertensive gastropathy. Bleeding esophageal varices 03/22/2019 Last Assessment & Plan: History of bleeding esophageal and gastric varices. Most recent EGD 02/2019 showed grade I/III EV s/p 1 EVL, multiple fundic varices, portal hypertensive gastropathy. She is at high risk for bleeding. We discussed TIPS and will start pre-TIPS assessment. recommend evaluation b advanced GI Dr Pelayo for gastric varices. On BB for for secondary prevention. She is on 2 beta blockers - recommend follow up with Dr Noyola to adjust medications - recommend stopping atenolol and recommend titration up propranolol to HR below 60 BPM. Increase propanol to 20 mg BID and follow closely, Immunity status testing 03/22/2019 Last Assessment & Plan: Serological tests will be completed to determine the presence of immunity to hepatitis A and B. If the patient does not have adequate immunity, we would recommend administration of appropriate vaccination as per CDC guidelines by the primary care provider. Abnormal liver diagnostic imaging 03/22/2019 Gastric ulcer 03/22/2019 Last Assessment & Plan: Recurrent gastric ulcer. Stopped all NSAID. recently diagnosed with H pylori gastritis - recommend follow up with Dr. Wyman for treatment. Continue PPI. Metabolic syndrome 03/22/2019 Last Assessment & Plan: She fits the criteria of metabolic syndrome with obesity, HTN and HLD. Risk factor for fatty liver disease. Body mass index is 36.58 kg/m. The patient was encouraged to initiate a weight reduction regimen that is to consist of a balanced healthy, low sugar and low carb diet in addition to exercise. This should improve not only her general health, but also her liver disease by eliminating a major risk factor for fatty liver disease. Counseling done today on diet modifications and exercise. Encounters Care Team Description Date Type Specialty Caitlin Toney MD 05/13/2019 Anesthesia Event Hardik Pelayo MD UPPER ENDOSCOPY,FNA W/ULTRASOUND 05/13/2019 Surgery Hardik Pelayo MD 05/13/2019 Hospital Encounter Resource, [facility] Preadmit Phone 05/04/2019 Hospital Pre-Admission Testing Encounter German Cameron MD Abnormal liver diagnostic imaging (Primary Dx); Immunity status testing; Portal hypertension (HCC); Secondary esophageal varices with bleeding (HCC) 04/27/2019 Office Visit Hepatology German Cameron MD Portal hypertension (HCC); Secondary esophageal varices with bleeding (HCC) 03/30/2019 Hospital Cardiology Encounter German Cameron MD Other cirrhosis of liver (HCC); Portal hypertension (HCC); Secondary esophageal varices with bleeding (HCC) 03/30/2019 Hospital Radiology Encounter German Cameron MD 03/24/2019 Documentation Hepatology German Cameron MD Other cirrhosis of liver (HCC); Portal hypertension (HCC); Secondary esophageal varices with bleeding (HCC); Immunity status testing; Abnormal liver diagnostic imaging; Gastric ulcer, unspecified chronicity, unspecified whether gastric ulcer hemorrhage or perforation present; Metabolic syndrome 03/22/2019 Office Visit Hepatology Graciela Hidalgo Appointment 03/03/2019 Telephone Hepatology after 05/25/2018 Family History Medical History Relation Name Comments Diabetes Father Stroke Father Dementia Mother Hypertension Mother Breast cancer Sister Relation Name Status Comments Father Mother Sister Social History Date Tobacco Use Types Packs/Day Years Used Passive Smoke Exposure - Never Smoker Smokeless Tobacco: Never Used Alcohol Use Drinks/Week oz/Week Comments No Sex Assigned at Date Recorded Not on file Industry Job Start Date Occupation Not on file Not on file Not on file Travel End Travel History Travel Start No recent travel history available. Last Filed Vital Signs Time Taken Vital Sign Reading 05/13/2019 10:45 AM CDT Blood Pressure 141/62 05/13/2019 10:45 AM CDT Pulse 56 05/13/2019 10:30 AM CDT Temperature 36.7 C (98 F) 05/13/2019 10:45 AM CDT Respiratory Rate 16 05/13/2019 10:45 AM CDT Oxygen Saturation 100% - Inhaled Oxygen - Concentration 05/13/2019 9:48 AM CDT Weight 86.9 kg (191 lb 8 oz) 05/13/2019 9:48 AM CDT Height 157.5 cm (5' 2") 05/13/2019 9:48 AM CDT Body Mass Index 35.03 Plan of Treatment Care Team Description Date Type Specialty Resource, [facility] F 10/28/2019 Office Visit Hepatology Procedures Comments Procedure Name Priority Date/Time Associated Diagnosis REPORT OF PROCEDURE - 05/13/2019 ENDOSCOPY URL 10:38 AM CDT UPPER ENDOSCOPY,FNA 05/13/2019 Gastric varices W/ULTRASOUND 10:00 AM CDT Special Needs (LINEAR SCOPE) ECHOCARDIOGRAM REPORT - 03/30/2019 SCAN 9:11 PM CDT 2D ECHO W/ DOPPLER Routine 03/30/2019 Portal hypertension (HCC) (CW/PW/COLOR) 2:31 PM CDT Secondary esophageal varices with bleeding (HCC) MR ABDOMEN WITH/WITHOUT Routine 03/30/2019 Other cirrhosis of liver IV CONTRAST 1:36 PM CDT (HCC) Portal hypertension (HCC) Secondary esophageal varices with bleeding (HCC) CBC W/PLT COUNT & AUTO Routine 03/22/2019 Other cirrhosis of liver DIFFERENTIAL 11:01 AM CDT (HCC) CHRIST TITER AND PATTERN Routine 03/22/2019 Other cirrhosis of liver 11:01 AM CDT (HCC) ALPHA FETOPROTEIN (AFP), Routine 03/22/2019 Other cirrhosis of liver TUMOR MARKER 11:01 AM CDT (HCC) MITOCHONDRIA M2 ANTIBODY Routine 03/22/2019 Other cirrhosis of liver (IGG) 11:01 AM CDT (HCC) ACTIN (SMOOTH MUSCLE) Routine 03/22/2019 Other cirrhosis of liver ANTIBODY, IGG 11:01 AM CDT (HCC) ANTI-NUCLEAR ANTIBODY Routine 03/22/2019 Other cirrhosis of liver (CHRIST) 11:01 AM CDT (HCC) CERULOPLASMIN Routine 03/22/2019 Other cirrhosis of liver 11:01 AM CDT (HCC) [id number]\\, Routine 03/22/2019 Other cirrhosis of liver SERUM 11:01 AM CDT (HCC) FERRITIN Routine 03/22/2019 Other cirrhosis of liver 11:01 AM CDT (HCC) IRON, TIBC, % SAT. Routine 03/22/2019 Other cirrhosis of liver (WITHOUT FERRITIN) 11:01 AM CDT (HCC) HEPATITIS C ANTIBODY Routine 03/22/2019 Other cirrhosis of liver 11:01 AM CDT (HCC) HEPATITIS B CORE Routine 03/22/2019 Immunity status testing ANTIBODY, TOTAL 11:01 AM CDT HEPATITIS B SURFACE Routine 03/22/2019 Immunity status testing ANTIBODY 11:01 AM CDT HEPATITIS B SURFACE Routine 03/22/2019 Immunity status testing ANTIGEN 11:01 AM CDT HEPATITIS A ANTIBODY, IGG Routine 03/22/2019 Immunity status testing 11:01 AM CDT PROTHROMBIN TIME/INR Routine 03/22/2019 Other cirrhosis of liver 11:01 AM CDT (HCC) CBC W/PLT COUNT & AUTO Routine 03/22/2019 Other cirrhosis of liver DIFFERENTIAL 11:01 AM CDT (HCC) BILIRUBIN, DIRECT Routine 03/22/2019 Other cirrhosis of liver 11:01 AM CDT (HCC) COMPREHENSIVE METABOLIC Routine 03/22/2019 Other cirrhosis of liver PANEL 11:01 AM CDT (HCC) after 05/25/2018 Results * REPORT OF PROCEDURE - ENDOSCOPY URL (05/13/2019 10:38 AM CDT) Narrative Performed At * ECHOCARDIOGRAM REPORT - SCAN (03/30/2019 9:11 PM CDT) Narrative Performed At * 2D Echo W/Doppler(CW/PW/Color) (03/30/2019 2:31 PM CDT) Ejection Fraction [facility] Specimen Narrative Performed At Transthoracic Echocardiography Report (TTE) [facility]ART[facility] Demographics [facility] Patient NameCORONMARU GALVINDate of Study03/30/2019 ANGIE Gender Female Visit [id number] Race Unknown Number Number Date of 1940 ReferringSood German jiménez Age 78 year(s) 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 Clinical History CANCER CHF GERD CHRONIC RENAL FAILURE HTN LIVER DISEASE MO OBESITY Height: 62 inches Weight: 90.72 kg (200 lbs) BSA: 1.91 m^2 BMI: 36.58 kg/m^2 HR: 74 bpm BP: 127/56 mmHg Summary The left ventricle is chamber size (by vol index) is mildly enlarged (female - LVED 62-70ml/m2). Borderline concentric LV hypertrophy. All of the LV segments are hyperkinetic . LVEF by Norris's method of disk assessment is increased (>70%) . Grade 1 diastolic dysfunction (impaired relaxation and low-normal LA pressure). Estimated peak systolic PA pressure is 30-35 mmHg . No pericardial effusion is visualized. Previous Study No prior studies available for comparison. Signature Findings Technical Quality: Technically adequate exam. Left Ventricle The left ventricle is chamber size (by vol index) is mildly enlarged (female - LVED 62-70ml/m2). Borderline concentric LV hypertrophy. All of the LV segments are hyperkinetic . Global LV systolic function hyperdynamic . LVEF by Norris's method of disk assessment is increased (>70%) . High (cardiac index >4 L/min/m2) cardiac output state at rest is noted. Grade 1 diastolic dysfunction (impaired relaxation and low-normal LA pressure). Left AtriumLA size is moderately enlarged (42-48 ml/m2) . Right VentricleThe right ventricular chamber size and systolic function are within normal limits. Right Atrium RA size is normal. Aortic Valve Mild AoV cusp calcification. No evidence of aortic regurgitation. No evidence of aortic stenosis. Mitral Valve Mild mitral annular calcification. Mild MV leaflet thickening. Mild mitral regurgitation. Tricuspid ValveTV structure is normal. A trace of tricuspid regurgitation. Estimated peak systolic PA pressure is 30-35 mmHg . Peak systolic pressure may be underestimated; partial TR signal. Pulmonic Valve Normal PV structure and function by limited views and Doppler. AortaAortic root size (SInus of Valsalva diameter) is normal . PericardiumNo pericardial effusion is visualized. IVC/SVC/PA/PV/PleuralThe estimated RA pressure by IVC dynamics 5-10mmHg . The inferior vena cava size is normal . The inferior vena cava is adequately visualized. Chambers/Structures Left Atrium LA Volume: 83.29 ml LA Area: 26.76 cm^2 LA Vol. Index: 44 ml/m^2 Left Ventricle LVIDd: 4.91 cm LVIDs: 2.9 cm LV Septum Diastolic: 1.2 cm LV PW Diastolic: 1.1 cmLV FS: 40.9 % LVEDV Norris's:128.45 ml LVESV Norris's:35.9 mlLVEDVI: 67 ml/m^2 LVEF Norris's: 72.1 % LVESVI: 19 ml/m^2 LVOT Diameter: 1.82 cm Right Atrium RA Vol. (Sngl Plane): 58.05 ml Aorta Ao Root S of Valeria.: 2.64 cm Doppler/Quantitative Measurements Mitral Valve MV Peak E-Wave: 0.9 m/s MV Peak A-Wave: 0.93 m/s E/A Ratio: 0.97 Peak Gradient: 3.27 mmHg Deceleration Time: 234.4 msec MV Alejandro. Peak: Tissue Doppler E' Lateral Velocity: 0.07 m/s E/E': 12.36 Aortic Valve Peak Velocity: 1.97 m/s Mean Velocity: 1.3 m/s Peak Gradient: 15.48 mmHg Mean Gradient: 7.9 mmHg AV Area (continuity): 2.19 cm^2 AV VTI: 49.16 cm AV DVI: 0.84 LVOT Peak Velocity: 1.55 m/s Peak Gradient: 9.65 mmHg Mean Velocity: 1.04 m/s Mean Gradient: 5.03 mmHg LVOT Diameter: 1.82 cmLVOT VTI: 41.4 cm LVOT Area: 2.6 cm^2 LVOT SV:107.65 ml LVOT CO: 7.97 l/min LVOT CI: 4.17 l/min/m^2 Tricuspid Valve TR Velocity: 2.49 m/s TR Gradient: 24.73 mmHg Procedure Note Interface, External Ris In - 03/30/2019 4:06 PM CDT Transthoracic Echocardiography Report (TTE) Demographics Patient Name MARU CHANEL Date of Study 03/30/2019 ANGIE Gender Female Visit Number [id number] Race Unknown Room Number Number Date of 1940 Referring Rakesh Salmon Physician Age 78 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 Clinical History CANCER CHF GERD CHRONIC RENAL FAILURE HTN LIVER DISEASE MO OBESITY Height: 62 inches Weight: 90.72 kg (200 lbs) BSA: 1.91 m^2 BMI: 36.58 kg/m^2 HR: 74 bpm BP: 127/56 mmHg Summary The left ventricle is chamber size (by vol index) is mildly enlarged (female - LVED 62-70ml/m2). Borderline concentric LV hypertrophy. All of the LV segments are hyperkinetic . LVEF by Norris's method of disk assessment is increased (>70%) . Grade 1 diastolic dysfunction (impaired relaxation and low-normal LA pressure). Estimated peak systolic PA pressure is 30-35 mmHg . No pericardial effusion is visualized. Previous Study No prior studies available for comparison. Signature Findings Technical Quality: Technically adequate exam. Left Ventricle The left ventricle is chamber size (by vol index) is mildly enlarged (female - LVED 62-70ml/m2). Borderline concentric LV hypertrophy. All of the LV segments are hyperkinetic . Global LV systolic function hyperdynamic . LVEF by Norris's method of disk assessment is increased (>70%) . High (cardiac index >4 L/min/m2) cardiac output state at rest is noted. Grade 1 diastolic dysfunction (impaired relaxation and low-normal LA pressure). Left Atrium LA size is moderately enlarged (42-48 ml/m2) . Right Ventricle The right ventricular chamber size and systolic function are within normal limits. Right Atrium RA size is normal. Aortic Valve Mild AoV cusp calcification. No evidence of aortic regurgitation. No evidence of aortic stenosis. Mitral Valve Mild mitral annular calcification. Mild MV leaflet thickening. Mild mitral regurgitation. Tricuspid Valve TV structure is normal. A trace of tricuspid regurgitation. Estimated peak systolic PA pressure is 30-35 mmHg . Peak systolic pressure may be underestimated; partial TR signal. Pulmonic Valve Normal PV structure and function by limited views and Doppler. Aorta Aortic root size (SInus of Valsalva diameter) is normal . Pericardium No pericardial effusion is visualized. IVC/SVC/PA/PV/Pleural The estimated RA pressure by IVC dynamics 5-10mmHg . The inferior vena cava size is normal . The inferior vena cava is adequately visualized. Chambers/Structures Left Atrium LA Volume: 83.29 ml LA Area: 26.76 cm^2 LA Vol. Index: 44 ml/m^2 Left Ventricle LVIDd: 4.91 cm LVIDs: 2.9 cm LV Septum Diastolic: 1.2 cm LV PW Diastolic: 1.1 cm LV FS: 40.9 % LVEDV Norris's:128.45 ml LVESV Norris's:35.9 ml LVEDVI: 67 ml/m^2 LVEF Norris's: 72.1 % LVESVI: 19 ml/m^2 LVOT Diameter: 1.82 cm Right Atrium RA Vol. (Sngl Plane): 58.05 ml Aorta Ao Root S of Valeria.: 2.64 cm Doppler/Quantitative Measurements Mitral Valve MV Peak E-Wave: 0.9 m/s MV Peak A-Wave: 0.93 m/s E/A Ratio: 0.97 Peak Gradient: 3.27 mmHg Deceleration Time: 234.4 msec MV Alejandro. Peak: Tissue Doppler E' Lateral Velocity: 0.07 m/s E/E': 12.36 Aortic Valve Peak Velocity: 1.97 m/s Mean Velocity: 1.3 m/s Peak Gradient: 15.48 mmHg Mean Gradient: 7.9 mmHg AV Area (continuity): 2.19 cm^2 AV VTI: 49.16 cm AV DVI: 0.84 LVOT Peak Velocity: 1.55 m/s Peak Gradient: 9.65 mmHg Mean Velocity: 1.04 m/s Mean Gradient: 5.03 mmHg LVOT Diameter: 1.82 cm LVOT VTI: 41.4 cm LVOT Area: 2.6 cm^2 LVOT SV:107.65 ml LVOT CO: 7.97 l/min LVOT CI: 4.17 l/min/m^2 Tricuspid Valve TR Velocity: 2.49 m/s TR Gradient: 24.73 mmHg Performing Organization Address City/State/Zipcode Phone Number [facility] * MRI abdomen with and without contrast (03/30/2019 1:36 PM CDT) Specimen Narrative Performed At FINAL REPORT PDD Group [facility] MRI of the abdomen. CLINICAL HISTORY: hx of cirrhosis and intrahepatic duct dilation, evaluate vasculature for possible TIP. COMPARISON STUDY: None. Technique: Multiplanar, multisequence imaging of the abdomen was acquired both pre and post administration of intravenous gadolinium in a dynamic fashion. No oral contrast was administered. FINDINGS: No pleural effusion is seen. The liver is nodular and cirrhotic in appearance. Post ministration of intravenous gadolinium in a dynamic fashion, no suspicious hepatic masses are seen. The main portal vein is patent measuring 1.6 cm. Cholecystectomy clips are seen. The CBD is mildly dilated measuring approximately 1.1 cm. The spleen is mildly enlarged measuring 13.5 cm in AP diameter. The adrenal glands are unremarkable. There are bilateral tiny renal cysts. Dilatation of the pancreatic duct is seen measuring 6 mm distally. No obvious mass is present. No dilated loops of bowel are seen to suggest obstruction. There is no ascites. No suspicious adenopathy is seen. The aorta is normal in caliber. Collateral vessels are seen with dilated short gastric veins and a dilated left suprarenal vein identified. The visualized osseous structures demonstrate degenerative changes. IMPRESSION: 1. Nodular, cirrhotic appearing liver with no suspicious masses. 2. Tiny renal cysts. 3. Status post cholecystectomy with mild biliary dilatation. 4. Splenomegaly. 5. Dilatation of the pancreatic duct. Signed: Schuyler Winters MD Report Verified Date/Time:03/30/2019 18:04:24 Reading Location: [address] Radiology Reading Room Procedure Note Interface, External Ris In - 03/30/2019 6:06 PM CDT FINAL REPORT MRI of the abdomen. CLINICAL HISTORY: hx of cirrhosis and intrahepatic duct dilation, evaluate vasculature for possible TIP. COMPARISON STUDY: None. Technique: Multiplanar, multisequence imaging of the abdomen was acquired both pre and post administration of intravenous gadolinium in a dynamic fashion. No oral contrast was administered. FINDINGS: No pleural effusion is seen. The liver is nodular and cirrhotic in appearance. Post ministration of intravenous gadolinium in a dynamic fashion, no suspicious hepatic masses are seen. The main portal vein is patent measuring 1.6 cm. Cholecystectomy clips are seen. The CBD is mildly dilated measuring approximately 1.1 cm. The spleen is mildly enlarged measuring 13.5 cm in AP diameter. The adrenal glands are unremarkable. There are bilateral tiny renal cysts. Dilatation of the pancreatic duct is seen measuring 6 mm distally. No obvious mass is present. No dilated loops of bowel are seen to suggest obstruction. There is no ascites. No suspicious adenopathy is seen. The aorta is normal in caliber. Collateral vessels are seen with dilated short gastric veins and a dilated left suprarenal vein identified. The visualized osseous structures demonstrate degenerative changes. IMPRESSION: 1. Nodular, cirrhotic appearing liver with no suspicious masses. 2. Tiny renal cysts. 3. Status post cholecystectomy with mild biliary dilatation. 4. Splenomegaly. 5. Dilatation of the pancreatic duct. Signed: Schuyler Winters MD Report Verified Date/Time: 03/30/2019 18:04:24 Reading Location: [address] Radiology Reading Room Performing Organization Address City/[facility] Cent[facility]ode Phone Number GE RIS * Hepatitis A antibody, IgG (03/22/2019 11:01 AM CDT) Hep A IgG Reactive (A) Nonreactive [facility] Specimen Blood Performing Organization Address [facility] Medical Centercode Phone Number [address] [address] [phone] [place] [address] * Mitochondrial Antibodies, M2 (03/22/2019 11:01 AM CDT) Mitochondria M2 Ab <20.0 See Note: [facility] Comment: INCORPORATED Reference Range: NEGATIVE:< OR=20.0 EQUIVOCAL: 20.1-24.9 POSITIVE:> OR=25.0 Specimen Blood Narrative Performed At Performing Lab [facility] [employer] [id number] [place] [id number] Adali Mcnally MD, PhD, CAR Performing Organization Address [facility] Centercodc Phone Number [facility] [employer], [address] [place], [place] INCORPORATED [employer] [facility] [address] * Iron, TIBC, % sat. (without ferritin) (03/22/2019 11:01 AM CDT) Iron 115.0 40.0 - 160.0 ug/dL [facility] TIBC 236 (L) 250 - 450 ug/dL [facility] Iron % Saturation 49 20 - 55 % [facility] Specimen Blood Performing Organization Address [facility] Centercode Phone Number [facility] [address] [place] [address] [phone] [place] [address] * CBC with platelet count + automated diff (03/22/2019 11:01 AM CDT) WBC 4.7 3.5 - 10.5 K/L [facility] RBC 3.18 (L) 3.93 - 5.22 M/L [facility] Hemoglobin 10.8 (L) 11.2 - 15.7 GM/DL [facility] Hematocrit 33.2 (L) 34.1 - 44.9 % [facility] MCV 104.4 (H) 79.4 - 94.8 fL [facility] MCH 34.0 (H) 25.6 - 32.2 pg [facility] MCHC 32.5 32.2 - 35.5 GM/DL [facility] RDW 14.2 11.7 - 14.4 % [facility] Platelets 102 (L) 150 - 450 K/CU MM [facility] MPV 10.8 9.4 - 12.3 fL [facility] nRBC 0 0 - 0 /100 WBC [facility] % Neutros 72 % [facility] % Lymphs 16 % [facility] % Monos 8 % [facility] % Eos 3 % [facility] % Baso 1 % [facility] # Neutros 3.38 1.56 - 6.13 K/L [facility] # Lymphs 0.77 (L) 1.18 - 3.74 K/L [facility] # Monos 0.36 0.24 - 0.36 K/L [facility] # Eos 0.15 0.04 - 0.36 K/L [facility] # Baso 0.04 0.01 - 0.08 K/L [facility] Immature 0 0 - 1 % [facility] Granulocytes-[facility] Specimen Blood Performing Organization Address City/State/Zipcode Phone Number [facility] [address] [place], [place] [phone] [facility] * Hepatitis C antibody (03/22/2019 11:01 AM CDT) Hepatitis C Ab Nonreactive Nonreactive [facility] Specimen Blood Performing Organization Address City/[facility] Centercode Phone Number [facility] [address] [place] [address] [phone] [facility] * Actin (Smooth Muscle) Antibody, IgG (03/22/2019 11:01 AM CDT) Anti-Smooth Muscle Ab <20 See Note: U [facility] Comment: INCORPORATED Reference Range: <20 NEGATIVE > OR=20 POSITIVE Antibodies recognizing actin are the main component of smooth muscle antibodies associated with autoimmune liver disease. Actin antibodies are found in approximately 75% of patients with autoimmune hepatitis (AIH) type 1, approximately 65% of patients with autoimmune cholangitis, approximately 30% of patients with primary biliary cirrhosis, and approximately 2% of healthy people. High values are closely correlated with AIH type 1. Specimen Blood Narrative Performed At Performing Lab [facility] [employer] [address] [address] Adali Mcnally MD, PhD, CAR Performing Organization Address [facility] Centercode Phone Number [facility], [address] [place] [address] [facility]PORATED [facility] [address] * [id number]-[id number] (03/22/2019 11:01 AM CDT) A-1 Antitrypsin 167.70 90.00 - 200.00 mg/dL [facility] Specimen Blood Performing Organization Address City/[facility]/Zipcode Phone Number [facility] [address] [place] [address] [facility] * CHRIST Titer & Pattern (03/22/2019 11:01 AM CDT) [facility]ST Titer 1:160 [facility]ST Pattern Homogeneous [facility] Specimen Blood Performing Organization Address City/[facility]/Zipcode Phone Number [address] [place] [phone] [facility] * Ceruloplasmin (03/22/2019 11:01 AM CDT) Ceruloplasmin 31 18 - 53 mg/dL [facility] Comment: INCORPORATED Adults:Males: 18-36 mg/dL Fe males: 18-53 mg/dL Pediatrics: Males (mg/dL)Females (mg/dL) ------ 0-30 Days 8-25 3-28 31 Days-11 Month 15-481 5-43 1-3 Years2 54 4-6 Years2 -54 7-9 Years2 -48 10-12 Iorgh40-24 21-48 13-15 [id number] 21-46 16-18 Isfpb36-43 22-50 The pediatric ranges are derived from the following criteria: Thierno SJ, Leatha FLEMING, Hyacinth J et al Pediatric reference ranges for Mjps-1-Nksghonisbjkm and ceruloplasmin. Clin. Chem 1997; 43:S1999 Pediatric Reference Ranges, 2nd., [place] Thierno,et al. editors. [employer], [place], [place] 1997. Specimen Blood Narrative Performed At Performing Lab [facility] *[facility], [address] [place] [address] Cira Palumbo MD, PhD Performing Organization Address City/State/Zipcode Phone Number [facility], [address] [place], [place] INCORPORATED [address] [address] * Alpha fetoprotein (AFP), tumor marker (03/22/2019 11:01 AM CDT) Alpha-Fetoprotein 9.0 <10.0 ng/mL [facility] Specimen Blood Performing Organization Address City/[facility]/Zipcode Phone Number [place] [phone] [place] [address] [facility] * Hepatitis B core antibody, total (03/22/2019 11:01 AM CDT) Hep B Core Total Ab Nonreactive Nonreactive [facility] Specimen Blood Performing Organization Address City/[facility]/Zipcode Phone Number [address] [address] [phone] [place] [address] * Hepatitis B surface antibody (03/22/2019 11:01 AM CDT) Hep B S Ab <8.0 <8.0 mIU/mL [facility] Specimen Blood Performing Organization Address City/[facility] Centercode Phone Number [address] [address] [phone] [place] [address] * Hepatitis B surface antigen (03/22/2019 11:01 AM CDT) hepatitis B Surface Ag Nonreactive Nonreactive [facility] Specimen Blood Performing Organization Address [facility] Centercodc Phone Number [address] [address] [phone] [address] * Pro-time/INR (03/22/2019 11:01 AM CDT) Protime 14.0 11.9 - 14.2 seconds [facility] INR 1.1 <=5.9 [facility] Specimen Blood Narrative Performed At Effective 03/03/2019: PT Reference Range Change [facility] New: 11.9-14.2Previous: 11.7-14.7 [facility] RECOMMENDED COUMADIN/WARFARIN INR THERAPY RANGES STANDARD DOSE: 2.0-3.0Includes: PROPHYLAXIS for venous thrombosis, systemic embolization; TREATMENT for venous thrombosis and/or pulmonary embolus. HIGH RISK: Target INR is 2.5-3.5 for patients wiht mechanical heart valves. Performing Organization Address [facility] Centercode Phone Number [address] [address] [phone] [address] * Anti-Nuclear Antibody ([facility]) (03/22/2019 11:01 AM CDT) [facility] Positive (A) Negative [facility] Specimen Blood Narrative Performed At Test performed by IFA method. [facility] Performing Organization Address City/[facility] Centercode Phone Number [address] [address] [phone] [place] [address] * Ferritin (03/22/2019 11:01 AM CDT) Ferritin 57 5 - 275 ng/mL [facility] Specimen Blood Performing Organization Address City/[facility] Centercode Phone Number [address] * Bilirubin, direct (03/22/2019 11:01 AM CDT) Bilirubin, Direct 0.5 0.1 - 0.5 mg/dL [facility] Specimen Blood Performing Organization Address [facility] Centercodc Phone Number [address] * Comprehensive Metabolic Panel (03/22/2019 11:01 AM CDT) Protein, Total 7.9 6.0 - 8.3 gm/dL [facility] Albumin 3.4 (L) 3.5 - 5.0 g/dL [facility] Alkaline Phosphatase 223 (H) 40 - 150 U/L [facility] Total Bilirubin 1.1 0.2 - 1.2 mg/dL [facility] Sodium 140 136 - 145 meq/L [facility] Potassium 3.9 3.5 - 5.1 meq/L [facility] Chloride 106 98 - 107 meq/L [facility] CO2 26 22 - 29 meq/L [facility] BUN 20 7 - 21 mg/dL [facility] Creatinine 0.93 0.57 - 1.25 mg/dL [facility] Glucose 95 70 - 105 mg/dL [facility] Calcium 9.3 8.4 - 10.2 mg/dL [facility] AST 48 (H) 5 - 34 U/L [facility] ALT 21 6 - 55 U/L [facility] EGFR 59Comment: ESTIMATED GFR IS mL/min/1.[address] [facility] NOT ACCURATE CREATININE [facility] CLEARANCE IN PREDICTING GLOMERULAR FILTRATION RATE. ESTIMATED GFR IS NOT APPLICABLE FOR DIALYSIS PATIENTS. Specimen Blood Performing Organization Address City/State/Zipcode Phone Number [facility] [address] [place] [address] [facility] after 05/25/2018 Insurance Payer Benefit Subscriber ID Type Phone Address Plan / Group [employer] - MEDICARE MGD CARE [employer] xxxxxxxx [facility] [phone] [address] [place] [address] O POS
[2019-05-26] MEDS ORDERED: LIDOCAINE 5% PATCH TP SCH (11:15)
--- NOTE | 2019-05-26 12:45 | Diagnostic Imaging Report ---
Right rib series, 2 views. History: Fall, right anterior chest pain. Findings: The soft tissues are normal. Bone mineralization is normal. There is no evidence of fracture or dislocation. There are no lytic or sclerotic lesions. The underlying lungs are normal. IMPRESSION: Normal right rib series. Signed by: Rosalino Jain on 05/26/2019 12:41 PM
[2019-05-26] MEDS ORDERED: MORPHINE SULFATE INJ 4 MG/ML INJ 1ML IM STA (13:30)
[2019-05-26 14:09] VITALS: BP 165/82
== END 2019-05-26 14:11 | disposition home or self-care (01) ==
LOC: ER 11:02
DX: S20.211A Contusion of right front wall of thorax, initial encounter (principal); I13.0 Hypertensive heart and chronic kidney disease with heart failure and stage 1 through stage 4 chronic kidney disease, or unspecified chronic kidney disease; N18.3 Chronic kidney disease, stage 3 (moderate); I50.9 Heart failure, unspecified; I25.10 Atherosclerotic heart disease of native coronary artery without angina pectoris; K21.9 Gastro-esophageal reflux disease without esophagitis; M54.9 Dorsalgia, unspecified; G89.29 Other chronic pain; Z79.82 Long term (current) use of aspirin; W01.0XXA Fall on same level from slipping, tripping and stumbling without subsequent striking against object, initial encounter; Y93.9 Activity, unspecified; Y92.009 Unspecified place in unspecified non-institutional (private) residence as the place of occurrence of the external cause
CPT/HCPCS: 71101; 99283; J2270

== ENCOUNTER 2020-06-27 16:31 | Inpatient (IN) | payer MEDICARE ==
[~2020-06-27] VITALS: Ht 157.5 cm; Wt 99.3 kg
[~2020-06-27 16:31] MED LIST changes: -FERROUS SULFAT325 MG; +FERROUS SULFAT325 MG PO; -VERAPAMIL ER120 MG; +VERAPAMIL ER120 MG PO
[2020-06-27 17:36] LABS: BASOPHILS % 0.6 % (0.0-1.0); EOSINOPHILS % 0.3 % (0.0-6.0); HEMATOCRIT 30.6 % (34.2-44.1); HEMOGLOBIN 10.3 g/dL (12.0-16.0); LYMPHOCYTES # (AUTO) 0.7 (1.0-3.2); LYMPHOCYTES % 10.5 % (18.0-39.1); MEAN CORPUSCULAR HEMOGLOBIN 33.7 pg (28-32); MEAN CORPUSCULAR HGB CONC 33.7 g/dL (31-35); MONOCYTES # (AUTO) 0.9 (0.2-0.8); MONOCYTES % 13.3 % (4.4-11.3); NEUTROPHILS # (AUTO) 4.8 (2.1-6.9); NEUTROPHILS % 74.7 % (38.7-80.0); PLATELET COUNT 151 x10e3/uL (140-360); RED BLOOD COUNT 3.06 x10e6/uL (3.6-5.1); RED CELL DISTRIBUTION WIDTH 14.2 % (11.7-14.4)
[2020-06-27 17:36] LABS: CLARITY,URINE CLEAR (CLEAR); COLOR,URINE YELLOW (YELLOW)
[2020-06-27 17:37] LABS: BILIRUBIN,URINE SMALL (NEGATIVE); KETONES,URINE TRACE (NEGATIVE); LEUKOCYTE ESTERASE ,URINE NEGATIVE (NEGATIVE); NITRITE,URINE NEGATIVE (NEGATIVE); PROTEIN,URINE DIPSTICK NEGATIVE (NEGATIVE); URINE UROBILINOGEN 8 mg/dL (0.2 - 1)
[2020-06-27 17:45] LABS: BACTERIA,URINE MODERATE /HPF; EPITHELIAL CELLS,URINE FEW /LPF; RBC,URINE 0-5 /HPF (0-5)
[2020-06-27 17:46] LABS: MUCUS,URINE FEW (RARE)
[2020-06-27 17:50] LABS: ALBUMIN 3.4 g/dL (3.5-5.0); ALBUMIN/GLOBULIN RATIO 0.9 (0.8-2.0); ANION GAP 17.2 mmol/L (8-16); CALCIUM 12.3 mg/dL (8.4-10.2); CREATININE, SERUM 2.54 mg/dL (0.57-1.11); POTASSIUM 4.2 mmol/L (3.5-5.1)
[2020-06-27 18:26] LABS: INR 1.07; PROTHROMBIN TIME 14.5 seconds (11.9-14.5)
[2020-06-27] MEDS ORDERED: LACTULOSE SYRUP 20 GM/30 ML UDC PO PRN (18:30)
[2020-06-27] MEDS ORDERED: SODIUM CHLORIDE 0.9% 1000ML 1,000 ML IV SCH (18:45)
[2020-06-27] MEDS ORDERED: CEFTRIAXONE SOD 1 GM/NS 50 ML 50 ML IV ONE (18:57)
[2020-06-27] MEDS ORDERED: SODIUM CHLORIDE 0.9% 1000ML 1,000 ML ONE (18:57)
[2020-06-27] MEDS: CEFTRIAXONE SOD 1 GM/NS 50 ML 50 ML IV SCH (18:57)
[2020-06-27] MEDS: SODIUM CHLORIDE 0.9% 1000ML 1,000 ML IV SCH (20:16)
[2020-06-27 22:20] VITALS: BP 172/75
[2020-06-27 22:59] VITALS: BP 172/75
[2020-06-27 23:07] VITALS: BP 172/75
[2020-06-27] MEDS ORDERED: METFORMIN HCL500 MG PO (23:42)
[2020-06-27] MEDS ORDERED: LACTULOSE20 GM/30 M PO (23:42)
[2020-06-27] MEDS ORDERED: PROTONIX40 MG PO (23:42)
[2020-06-27] MEDS ORDERED: ZOFRAN4 MG PO (23:42)
[2020-06-27] MEDS ORDERED: SPIRONOLACTONE25 MG PO (23:42)
[2020-06-28] VITALS (8 sets, daily range): BP systolic 131–161; BP diastolic 59–67
[2020-06-28] MEDS: SODIUM CHLORIDE 0.9% 1000ML 1,000 ML IV SCH ×2 (04:29→21:32)
[2020-06-28 06:13] LABS: BASOPHILS % 0.4 % (0.0-1.0); EOSINOPHILS % 0.9 % (0.0-6.0); HEMATOCRIT 29.6 % (34.2-44.1); HEMOGLOBIN 9.7 g/dL (12.0-16.0); LYMPHOCYTES # (AUTO) 0.6 (1.0-3.2); LYMPHOCYTES % 11.7 % (18.0-39.1); MEAN CORPUSCULAR HEMOGLOBIN 33.2 pg (28-32); MEAN CORPUSCULAR HGB CONC 32.8 g/dL (31-35); MEAN CORPUSCULAR VOLUME 101.4 fL (81-99); MONOCYTES # (AUTO) 0.8 (0.2-0.8); NEUTROPHILS # (AUTO) 3.3 (2.1-6.9); NEUTROPHILS % 69.4 % (38.7-80.0); PLATELET COUNT 113 x10e3/uL (140-360); RED BLOOD COUNT 2.92 x10e6/uL (3.6-5.1); RED CELL DISTRIBUTION WIDTH 14.1 % (11.7-14.4)
[2020-06-28 06:35] LABS: ANION GAP 13.8 mmol/L (8-16); CALCIUM 11.2 mg/dL (8.4-10.2); CREATININE, SERUM 1.95 mg/dL (0.57-1.11); POTASSIUM 3.8 mmol/L (3.5-5.1)
[2020-06-28] MEDS: CEFTRIAXONE SOD 1 GM/NS 50 ML 50 ML IV SCH (21:25)
[2020-06-28] MEDS ORDERED: ATENOLOL50 MG PO (21:29)
[2020-06-28] MEDS: PRAMIPEXOLE DIHYDROCHLORIDE 0.25 MG TAB PO SCH (22:00)
[2020-06-29] VITALS (8 sets, daily range): BP systolic 139–166; BP diastolic 58–84
[2020-06-29] MEDS: SODIUM CHLORIDE 0.9% 1000ML 1,000 ML IV SCH (06:17)
[2020-06-29 06:19] LABS: BASOPHILS % 0.7 % (0.0-1.0); EOSINOPHILS # (AUTO) 0.1 (0.0-0.4); EOSINOPHILS % 1.8 % (0.0-6.0); HEMATOCRIT 29.6 % (34.2-44.1); HEMOGLOBIN 9.9 g/dL (12.0-16.0); LYMPHOCYTES # (AUTO) 0.6 (1.0-3.2); LYMPHOCYTES % 13.6 % (18.0-39.1); MEAN CORPUSCULAR HEMOGLOBIN 34.4 pg (28-32); MEAN CORPUSCULAR HGB CONC 33.4 g/dL (31-35); MEAN CORPUSCULAR VOLUME 102.8 fL (81-99); MONOCYTES # (AUTO) 0.5 (0.2-0.8); NEUTROPHILS # (AUTO) 3.2 (2.1-6.9); NEUTROPHILS % 71.5 % (38.7-80.0); PLATELET COUNT 95 x10e3/uL (140-360); RED BLOOD COUNT 2.88 x10e6/uL (3.6-5.1); RED CELL DISTRIBUTION WIDTH 14.1 % (11.7-14.4)
[2020-06-29 06:46] LABS: ALBUMIN 2.9 g/dL (3.5-5.0); ALBUMIN/GLOBULIN RATIO 0.8 (0.8-2.0); ANION GAP 13.9 mmol/L (8-16); CALCIUM 11.1 mg/dL (8.4-10.2); CREATININE, SERUM 1.32 mg/dL (0.57-1.11); MAGNESIUM 1.5 MG/DL (1.3-2.1); POTASSIUM 3.9 mmol/L (3.5-5.1)
[2020-06-29] MEDS: ATENOLOL 50 MG TAB PO SCH (09:00)
[2020-06-29] MEDS: PANTOPRAZOLE SODIUM 40 MG SUSPDR.PKT PO SCH (09:16)
[2020-06-29] MEDS: FERROUS SULFATE 325 MG TAB PO SCH (09:16)
[2020-06-29] MEDS: VERAPAMIL HCL 120 MG TABSR PO SCH (09:16)
[2020-06-29] MEDS: ASPIRIN 81 MG CHEW TAB PO SCH (09:17)
[2020-06-29] MEDS: PRAMIPEXOLE DIHYDROCHLORIDE 0.25 MG TAB PO SCH (21:00)
[2020-06-30] VITALS: BP 149/63
[2020-06-30] MEDS: CEFTRIAXONE SOD 1 GM/NS 50 ML 50 ML IV SCH (00:12)
[2020-06-30] MEDS: SODIUM CHLORIDE 0.9% 1000ML 1,000 ML IV SCH ×2 (00:12→06:27)
[2020-06-30 04:00] VITALS: BP 146/54
[2020-06-30 06:19] LABS: ALBUMIN 3.1 g/dL (3.5-5.0); ALBUMIN/GLOBULIN RATIO 0.8 (0.8-2.0); ANION GAP 13.1 mmol/L (8-16); CALCIUM 11.1 mg/dL (8.4-10.2); CREATININE, SERUM 1.19 mg/dL (0.57-1.11); MAGNESIUM 1.4 MG/DL (1.3-2.1); POTASSIUM 4.1 mmol/L (3.5-5.1)
[2020-06-30 08:00] VITALS: BP 143/66
[2020-06-30] MEDS: ASPIRIN 81 MG CHEW TAB PO SCH (09:01)
[2020-06-30] MEDS: FERROUS SULFATE 325 MG TAB PO SCH (09:02)
[2020-06-30] MEDS: VERAPAMIL HCL 120 MG TABSR PO SCH (09:02)
[2020-06-30] MEDS: PANTOPRAZOLE SODIUM 40 MG SUSPDR.PKT PO SCH (09:02)
[2020-06-30] MEDS: ATENOLOL 50 MG TAB PO SCH (09:03)
[2020-06-30 09:34] VITALS: BP 143/60
[2020-06-30 13:35] VITALS: BP 106/66
[2020-06-30 13:36] VITALS: BP 106/66
== END 2020-06-30 16:00 | disposition home or self-care (01) | DRG 441 ==
LOC: ER 17:47 → ERHOLD 19:24 → MED/SURG3 22:29 → OBSVTOIN 06-29 15:50
PROVIDERS: ADMIT Family Medicine; ATTEND Family Medicine
DX: K72.90 Hepatic failure, unspecified without coma (principal); G92 Toxic encephalopathy; N17.9 Acute kidney failure, unspecified; I50.22 Chronic systolic (congestive) heart failure; I13.0 Hypertensive heart and chronic kidney disease with heart failure and stage 1 through stage 4 chronic kidney disease, or unspecified chronic kidney disease; N39.0 Urinary tract infection, site not specified; D69.6 Thrombocytopenia, unspecified; Z11.59 Encounter for screening for other viral diseases; E86.0 Dehydration; K58.9 Irritable bowel syndrome, unspecified; K74.69 Other cirrhosis of liver; R11.2 Nausea with vomiting, unspecified; G25.81 Restless legs syndrome; E78.5 Hyperlipidemia, unspecified; E11.22 Type 2 diabetes mellitus with diabetic chronic kidney disease; N18.3 Chronic kidney disease, stage 3 (moderate); B96.20 Unspecified Escherichia coli [E. coli] as the cause of diseases classified elsewhere
CPT/HCPCS: 36415; 70450; 71045; 80048; 80053; 81001; 82140; 83735; 84484; 85025; 85610; 87086; 87186; 97139; 99284; G0378; J0696; J7030; U0002

== ENCOUNTER 2020-07-08 21:50 | Inpatient (IN) | payer MEDICARE ==
[~2020-07-08] VITALS: Ht 157.5 cm; Wt 79.8 kg
[2020-07-08] MEDS: SODIUM CHLORIDE 0.9% 1000ML 1,000 ML IV SCH (00:05)
[~2020-07-08 21:50] MED LIST changes: +LACTULOSE20 GM/30 M PO; +METFORMIN HCL500 MG PO; +PROTONIX40 MG PO; +SPIRONOLACTONE25 MG PO; +ZOFRAN4 MG PO
[2020-07-08] MEDS ORDERED: SODIUM CHLORIDE 0.9% 500ML 500 ML IV STA (21:54)
[2020-07-08 22:08] LABS: BASOPHILS % 0.3 % (0.0-1.0); HEMATOCRIT 28.6 % (34.2-44.1); HEMOGLOBIN 9.5 g/dL (12.0-16.0); LYMPHOCYTES # (AUTO) 0.6 (1.0-3.2); LYMPHOCYTES % 6.2 % (18.0-39.1); MEAN CORPUSCULAR HEMOGLOBIN 33.7 pg (28-32); MEAN CORPUSCULAR HGB CONC 33.2 g/dL (31-35); MEAN CORPUSCULAR VOLUME 101.4 fL (81-99); MONOCYTES # (AUTO) 1.4 (0.2-0.8); MONOCYTES % 13.3 % (4.4-11.3); NEUTROPHILS # (AUTO) 8.2 (2.1-6.9); NEUTROPHILS % 79.5 % (38.7-80.0); PLATELET COUNT 138 x10e3/uL (140-360); RED BLOOD COUNT 2.82 x10e6/uL (3.6-5.1); RED CELL DISTRIBUTION WIDTH 15.6 % (11.7-14.4)
[2020-07-08 22:29] LABS: ALBUMIN 2.6 g/dL (3.5-5.0); ALBUMIN/GLOBULIN RATIO 0.6 (0.8-2.0); ANION GAP 13.9 mmol/L (8-16); CREATININE, SERUM 2.47 mg/dL (0.57-1.11); POTASSIUM 3.9 mmol/L (3.5-5.1)
[2020-07-08 22:38] LABS: CALCIUM 16.2 mg/dL (8.4-10.2)
[2020-07-09] VITALS (9 sets, daily range): BP systolic 125–157; BP diastolic 48–62
[2020-07-09] MEDS: SODIUM CHLORIDE 0.9% 1000ML 1,000 ML IV SCH ×5 (00:05→23:00)
[2020-07-09 06:37] LABS: BASOPHILS % 0.3 % (0.0-1.0); EOSINOPHILS % 0.3 % (0.0-6.0); HEMATOCRIT 30.2 % (34.2-44.1); HEMOGLOBIN 10.1 g/dL (12.0-16.0); LYMPHOCYTES # (AUTO) 0.5 (1.0-3.2); LYMPHOCYTES % 8.7 % (18.0-39.1); MEAN CORPUSCULAR HEMOGLOBIN 34.8 pg (28-32); MEAN CORPUSCULAR HGB CONC 33.4 g/dL (31-35); MEAN CORPUSCULAR VOLUME 104.1 fL (81-99); MONOCYTES # (AUTO) 0.8 (0.2-0.8); MONOCYTES % 13.8 % (4.4-11.3); NEUTROPHILS # (AUTO) 4.6 (2.1-6.9); NEUTROPHILS % 76.2 % (38.7-80.0); PLATELET COUNT 105 x10e3/uL (140-360); RED CELL DISTRIBUTION WIDTH 15.7 % (11.7-14.4)
[2020-07-09 07:01] LABS: CREATINE KINASE MB 11.1 ng/mL (0-5.0)
[2020-07-09] MEDS ORDERED: PROPRANOLOL HCL20 MG (07:17)
[2020-07-09] MEDS ORDERED: LASIX40 MG PO (07:17)
[2020-07-09 07:37] LABS: ALBUMIN 2.5 g/dL (3.5-5.0); ALBUMIN/GLOBULIN RATIO 0.6 (0.8-2.0); ANION GAP 13.9 mmol/L (8-16); CREATININE, SERUM 2.08 mg/dL (0.57-1.11); POTASSIUM 3.9 mmol/L (3.5-5.1)
[2020-07-09 08:14] LABS: CALCIUM 15.5 mg/dL (8.4-10.2)
[2020-07-09 15:02] LABS: CREATINE KINASE MB 7.4 ng/mL (0-5.0)
[2020-07-10] VITALS (8 sets, daily range): BP systolic 122–138; BP diastolic 43–60
[2020-07-10] MEDS: SODIUM CHLORIDE 0.9% 1000ML 1,000 ML IV SCH ×2 (03:57→14:15)
[2020-07-10 06:02] LABS: BASOPHILS % 0.6 % (0.0-1.0); EOSINOPHILS # (AUTO) 0.1 (0.0-0.4); EOSINOPHILS % 1.7 % (0.0-6.0); HEMATOCRIT 28.9 % (34.2-44.1); HEMOGLOBIN 9.6 g/dL (12.0-16.0); LYMPHOCYTES # (AUTO) 0.4 (1.0-3.2); LYMPHOCYTES % 7.8 % (18.0-39.1); MEAN CORPUSCULAR HEMOGLOBIN 34.5 pg (28-32); MEAN CORPUSCULAR HGB CONC 33.2 g/dL (31-35); MONOCYTES # (AUTO) 0.6 (0.2-0.8); MONOCYTES % 12.1 % (4.4-11.3); NEUTROPHILS # (AUTO) 4.1 (2.1-6.9); PLATELET COUNT 100 x10e3/uL (140-360); RED BLOOD COUNT 2.78 x10e6/uL (3.6-5.1); RED CELL DISTRIBUTION WIDTH 15.9 % (11.7-14.4)
[2020-07-10 06:25] LABS: ALBUMIN 2.1 g/dL (3.5-5.0); ALBUMIN/GLOBULIN RATIO 0.6 (0.8-2.0); ANION GAP 9.8 mmol/L (8-16); CREATININE, SERUM 1.55 mg/dL (0.57-1.11); MAGNESIUM 1.2 MG/DL (1.3-2.1); PHOSPHORUS 2.5 MG/DL (2.3-4.7); POTASSIUM 3.8 mmol/L (3.5-5.1)
[2020-07-10] MEDS ORDERED: SPIRONOLACTONE 25 MG TAB PO SCH (09:00)
[2020-07-10] MEDS: ATENOLOL 50 MG TAB PO SCH (09:41)
[2020-07-10] MEDS: LACTULOSE SYRUP 20 GM/30 ML UDC PO SCH ×3 (09:42→22:00)
[2020-07-10] MEDS: FERROUS SULFATE 325 MG TAB PO SCH (09:42)
[2020-07-10] MEDS: PANTOPRAZOLE SODIUM 40 MG SUSPDR.PKT PO SCH (09:42)
[2020-07-10] MEDS ORDERED: OMEPRAZOLE40 MG PO (14:55)
[2020-07-10] MEDS ORDERED: LACTULOSE10 GM/15 M PO (14:55)
[2020-07-10] MEDS ORDERED: VITAMIN D250 MCG PO (15:01)
[2020-07-10] MEDS ORDERED: CIPRO500 MG PO (15:21)
[2020-07-10] MEDS: SODIUM CHLORIDE 0.9% 1000ML 1,000 ML IV STA ×2 (18:08→18:09)
[2020-07-10] MEDS ORDERED: SODIUM CHLORIDE 0.9% 1000ML 1,000 ML ONE (18:15)
[2020-07-10] MEDS: PRAMIPEXOLE DIHYDROCHLORIDE 0.25 MG TAB PO SCH (22:00)
[2020-07-11] VITALS (8 sets, daily range): BP systolic 100–145; BP diastolic 34–54
[2020-07-11] MEDS: SODIUM CHLORIDE 0.9% 1000ML 1,000 ML IV SCH ×4 (00:15→20:15)
[2020-07-11 06:48] LABS: ALBUMIN/GLOBULIN RATIO 0.5 (0.8-2.0); ANION GAP 10.7 mmol/L (8-16); CREATININE, SERUM 1.56 mg/dL (0.57-1.11); POTASSIUM 3.7 mmol/L (3.5-5.1)
[2020-07-11 06:58] LABS: CALCIUM 14.1 mg/dL (8.4-10.2)
[2020-07-11] MEDS: ATENOLOL 50 MG TAB PO SCH (09:00)
[2020-07-11] MEDS: PANTOPRAZOLE SODIUM 40 MG SUSPDR.PKT PO SCH (09:13)
[2020-07-11] MEDS: FERROUS SULFATE 325 MG TAB PO SCH (09:13)
[2020-07-11] MEDS: LACTULOSE SYRUP 20 GM/30 ML UDC PO SCH ×3 (09:13→21:00)
[2020-07-11] MEDS: BALSAM PERU/CASTOR OIL 60 GM OINT...G. TP SCH (10:24)
[2020-07-11] MEDS ORDERED: LIDOCAINE HCL 1% LOCAL INJ 20 ML VIAL ONE (10:58)
[2020-07-11] MEDS ORDERED: PAMIDRONATE DISODIUM IV ONE (17:30)
[2020-07-11] MEDS ORDERED: SODIUM CHLORIDE 0.9% IV ONE (17:30)
[2020-07-11] MEDS: PRAMIPEXOLE DIHYDROCHLORIDE 0.25 MG TAB PO SCH (21:00)
[2020-07-12] VITALS (8 sets, daily range): BP systolic 133–157; BP diastolic 53–67
[2020-07-12 05:41] LABS: ALBUMIN 2.1 g/dL (3.5-5.0); ALBUMIN/GLOBULIN RATIO 0.6 (0.8-2.0); ANION GAP 11.7 mmol/L (8-16); CREATININE, SERUM 1.46 mg/dL (0.57-1.11); POTASSIUM 3.7 mmol/L (3.5-5.1)
[2020-07-12 05:42] LABS: CALCIUM 14.1 mg/dL (8.4-10.2)
[2020-07-12] MEDS: SODIUM CHLORIDE 0.9% 1000ML 1,000 ML IV SCH ×3 (06:15→20:01)
[2020-07-12] MEDS ORDERED: CINACALCET 30 MG TAB PO SCH (09:00)
[2020-07-12] MEDS: BALSAM PERU/CASTOR OIL 60 GM OINT...G. TP SCH (10:21)
[2020-07-12] MEDS: FERROUS SULFATE 325 MG TAB PO SCH (10:21)
[2020-07-12] MEDS: PANTOPRAZOLE SODIUM 40 MG SUSPDR.PKT PO SCH (10:21)
[2020-07-12] MEDS: LACTULOSE SYRUP 20 GM/30 ML UDC PO SCH ×3 (10:21→20:01)
[2020-07-12] MEDS: PRAMIPEXOLE DIHYDROCHLORIDE 0.25 MG TAB PO SCH (20:01)
[2020-07-12] MEDS ORDERED: ONDANSETRON HCL INJ 2MG/ML 2ML 2 MG/ML VIAL IV PRN (21:45)
[2020-07-13] VITALS (7 sets, daily range): BP systolic 117–154; BP diastolic 53–71
[2020-07-13 05:06] LABS: BASOPHILS % 0.2 % (0.0-1.0); EOSINOPHILS # (AUTO) 0.1 (0.0-0.4); EOSINOPHILS % 0.9 % (0.0-6.0); HEMATOCRIT 25.5 % (34.2-44.1); HEMOGLOBIN 8.5 g/dL (12.0-16.0); LYMPHOCYTES # (AUTO) 0.3 (1.0-3.2); LYMPHOCYTES % 6.2 % (18.0-39.1); MEAN CORPUSCULAR HGB CONC 33.3 g/dL (31-35); MEAN CORPUSCULAR VOLUME 104.9 fL (81-99); MONOCYTES # (AUTO) 0.6 (0.2-0.8); NEUTROPHILS # (AUTO) 4.4 (2.1-6.9); NEUTROPHILS % 81.1 % (38.7-80.0); PLATELET COUNT 77 x10e3/uL (140-360); RED BLOOD COUNT 2.43 x10e6/uL (3.6-5.1); RED CELL DISTRIBUTION WIDTH 16.9 % (11.7-14.4)
[2020-07-13 05:35] LABS: ALBUMIN/GLOBULIN RATIO 0.6 (0.8-2.0); ANION GAP 10.6 mmol/L (8-16); CREATININE, SERUM 1.47 mg/dL (0.57-1.11); POTASSIUM 3.6 mmol/L (3.5-5.1)
[2020-07-13 05:40] LABS: CALCIUM 13.9 mg/dL (8.4-10.2)
[2020-07-13] MEDS: PANTOPRAZOLE SODIUM 40 MG SUSPDR.PKT PO SCH (09:27)
[2020-07-13] MEDS: LACTULOSE SYRUP 20 GM/30 ML UDC PO SCH ×3 (09:27→21:18)
[2020-07-13] MEDS: FERROUS SULFATE 325 MG TAB PO SCH (09:27)
[2020-07-13] MEDS: BALSAM PERU/CASTOR OIL 60 GM OINT...G. TP SCH (09:27)
[2020-07-13] MEDS: METHYLPREDNISOLONE SOD SUCC 40 MG/ML VIAL 1ML IV SCH ×2 (12:45→21:18)
[2020-07-13] MEDS: PRAMIPEXOLE DIHYDROCHLORIDE 0.25 MG TAB PO SCH (21:17)
[2020-07-13] MEDS: SODIUM CHLORIDE 0.9% 1000ML 1,000 ML IV SCH (21:20)
[2020-07-14] VITALS (7 sets, daily range): BP systolic 130–147; BP diastolic 55–85
[2020-07-14 05:23] LABS: BASOPHILS % 0.1 % (0.0-1.0); HEMATOCRIT 26.2 % (34.2-44.1); HEMOGLOBIN 8.7 g/dL (12.0-16.0); LYMPHOCYTES # (AUTO) 0.3 (1.0-3.2); LYMPHOCYTES % 3.7 % (18.0-39.1); MEAN CORPUSCULAR HEMOGLOBIN 35.1 pg (28-32); MEAN CORPUSCULAR HGB CONC 33.2 g/dL (31-35); MEAN CORPUSCULAR VOLUME 105.6 fL (81-99); MONOCYTES # (AUTO) 0.4 (0.2-0.8); MONOCYTES % 5.4 % (4.4-11.3); NEUTROPHILS # (AUTO) 6.1 (2.1-6.9); NEUTROPHILS % 90.1 % (38.7-80.0); PLATELET COUNT 66 x10e3/uL (140-360); RED BLOOD COUNT 2.48 x10e6/uL (3.6-5.1)
[2020-07-14 05:46] LABS: ALBUMIN/GLOBULIN RATIO 0.5 (0.8-2.0); ANION GAP 12.1 mmol/L (8-16); CALCIUM 12.9 mg/dL (8.4-10.2); CREATININE, SERUM 1.5 mg/dL (0.57-1.11); POTASSIUM 4.1 mmol/L (3.5-5.1)
[2020-07-14 06:27] LABS: INR 1.25; PROTHROMBIN TIME 16.3 seconds (11.9-14.5)
[2020-07-14] MEDS: METHYLPREDNISOLONE SOD SUCC 40 MG/ML VIAL 1ML IV SCH ×3 (09:22→22:18)
[2020-07-14] MEDS: PANTOPRAZOLE SODIUM 40 MG SUSPDR.PKT PO SCH (09:22)
[2020-07-14] MEDS: FERROUS SULFATE 325 MG TAB PO SCH (09:22)
[2020-07-14] MEDS: LACTULOSE SYRUP 20 GM/30 ML UDC PO SCH ×3 (09:22→22:18)
[2020-07-14] MEDS: BALSAM PERU/CASTOR OIL 60 GM OINT...G. TP SCH (09:22)
[2020-07-14] MEDS ORDERED: ONDANSETRON HCL 4 MG ORAL DISINTEGRATING TAB PO PRN (09:45)
[2020-07-14] MEDS: SODIUM CHLORIDE 0.9% 1000ML 1,000 ML IV SCH (12:47)
[2020-07-14] MEDS: PRAMIPEXOLE DIHYDROCHLORIDE 0.25 MG TAB PO SCH (22:18)
[2020-07-14] MEDS ORDERED: METHYLPREDNISOLONE SOD SUCC 40 MG/ML VIAL 1ML IV ONE (22:30)
[2020-07-15] VITALS (8 sets, daily range): BP systolic 102–153; BP diastolic 46–80
[2020-07-15 05:28] LABS: BASOPHILS % 0.1 % (0.0-1.0); HEMATOCRIT 28.9 % (34.2-44.1); HEMOGLOBIN 9.6 g/dL (12.0-16.0); LYMPHOCYTES # (AUTO) 0.3 (1.0-3.2); LYMPHOCYTES % 3.1 % (18.0-39.1); MEAN CORPUSCULAR HEMOGLOBIN 34.7 pg (28-32); MEAN CORPUSCULAR HGB CONC 33.2 g/dL (31-35); MEAN CORPUSCULAR VOLUME 104.3 fL (81-99); MONOCYTES # (AUTO) 0.9 (0.2-0.8); MONOCYTES % 8.7 % (4.4-11.3); NEUTROPHILS # (AUTO) 8.7 (2.1-6.9); NEUTROPHILS % 87.3 % (38.7-80.0); PLATELET COUNT 82 x10e3/uL (140-360); RED BLOOD COUNT 2.77 x10e6/uL (3.6-5.1); RED CELL DISTRIBUTION WIDTH 17.4 % (11.7-14.4)
[2020-07-15 05:48] LABS: ANION GAP 13.1 mmol/L (8-16); CALCIUM 12.2 mg/dL (8.4-10.2); CREATININE, SERUM 1.63 mg/dL (0.57-1.11); POTASSIUM 4.1 mmol/L (3.5-5.1)
[2020-07-15 08:49] LABS: ANISOCYTOSIS FEW; BAND NEUTROPHILS % (MANUAL) 2 %; HYPOCHROMASIA FEW; LYMPHOCYTES % (MANUAL) 2 % (19-48); MONOCYTES % (MANUAL) 5 % (3.4-9.0); NEUTROPHILS % (MANUAL) 91 % (40-74); RBC MORPHOLOGY COMMENT ABNORMAL; TEAR DROP CELLS FEW
[2020-07-15 08:50] LABS: PLATELET ESTIMATE ADEQUATE; PLATELET MORPHOLOGY COMMENT NORMAL
[2020-07-15] MEDS: PANTOPRAZOLE SODIUM 40 MG SUSPDR.PKT PO SCH (09:00)
[2020-07-15] MEDS: FERROUS SULFATE 325 MG TAB PO SCH (09:24)
[2020-07-15] MEDS: BALSAM PERU/CASTOR OIL 60 GM OINT...G. TP SCH (09:24)
[2020-07-15] MEDS: LACTULOSE SYRUP 20 GM/30 ML UDC PO SCH ×2 (09:24→16:23)
[2020-07-15] MEDS: PANTOPRAZOLE 40 MG 10ML VIAL IV SCH (09:42)
[2020-07-15] MEDS: ATENOLOL 50 MG TAB PO SCH (13:20)
[2020-07-15] MEDS: FUROSEMIDE 20 MG TAB PO SCH (16:23)
[2020-07-15] MEDS: SODIUM BICARBONATE 650 MG TAB PO SCH (16:23)
[2020-07-15] MEDS: PRAMIPEXOLE DIHYDROCHLORIDE 0.25 MG TAB PO SCH (20:14)
[2020-07-16] VITALS (8 sets, daily range): BP systolic 111–132; BP diastolic 55–81
[2020-07-16 06:05] LABS: ANION GAP 12.9 mmol/L (8-16); CALCIUM 11.3 mg/dL (8.4-10.2); CREATININE, SERUM 1.77 mg/dL (0.57-1.11); POTASSIUM 3.9 mmol/L (3.5-5.1)
[2020-07-16] MEDS: PANTOPRAZOLE 40 MG 10ML VIAL IV SCH (10:34)
[2020-07-16] MEDS: FERROUS SULFATE 325 MG TAB PO SCH (10:34)
[2020-07-16] MEDS: LACTULOSE SYRUP 20 GM/30 ML UDC PO SCH ×2 (10:34→17:58)
[2020-07-16] MEDS: SODIUM BICARBONATE 650 MG TAB PO SCH ×2 (10:34→17:58)
[2020-07-16] MEDS: FUROSEMIDE 20 MG TAB PO SCH (10:34)
[2020-07-16] MEDS: ATENOLOL 50 MG TAB PO SCH (10:35)
[2020-07-16] MEDS: BALSAM PERU/CASTOR OIL 60 GM OINT...G. TP SCH (10:36)
[2020-07-16] MEDS: PRAMIPEXOLE DIHYDROCHLORIDE 0.25 MG TAB PO SCH (20:59)
[2020-07-17] VITALS (7 sets, daily range): BP systolic 113–138; BP diastolic 46–72
[2020-07-17] MEDS: BALSAM PERU/CASTOR OIL 60 GM OINT...G. TP SCH (08:19)
[2020-07-17] MEDS: ATENOLOL 50 MG TAB PO SCH (09:00)
[2020-07-17] MEDS: LACTULOSE SYRUP 20 GM/30 ML UDC PO SCH ×2 (09:00→16:09)
[2020-07-17] MEDS: SODIUM BICARBONATE 650 MG TAB PO SCH ×2 (09:00→16:09)
[2020-07-17] MEDS: PANTOPRAZOLE 40 MG 10ML VIAL IV SCH (09:49)
[2020-07-17] MEDS: FERROUS SULFATE 325 MG TAB PO SCH (14:38)
[2020-07-17] MEDS: FUROSEMIDE 20 MG TAB PO SCH (14:38)
[2020-07-17] MEDS: PRAMIPEXOLE DIHYDROCHLORIDE 0.25 MG TAB PO SCH (20:39)
[2020-07-18 00:29] VITALS: BP 130/61
[2020-07-18 06:57] LABS: ALBUMIN/GLOBULIN RATIO 0.5 (0.8-2.0); ANION GAP 13.7 mmol/L (8-16); CALCIUM 10.7 mg/dL (8.4-10.2); CREATININE, SERUM 1.74 mg/dL (0.57-1.11); POTASSIUM 3.7 mmol/L (3.5-5.1)
[2020-07-18 07:01] LABS: BASOPHILS % 0.3 % (0.0-1.0); EOSINOPHILS # (AUTO) 0.1 (0.0-0.4); HEMATOCRIT 27.3 % (34.2-44.1); HEMOGLOBIN 9.1 g/dL (12.0-16.0); LYMPHOCYTES # (AUTO) 0.4 (1.0-3.2); LYMPHOCYTES % 5.4 % (18.0-39.1); MEAN CORPUSCULAR HEMOGLOBIN 34.6 pg (28-32); MEAN CORPUSCULAR HGB CONC 33.3 g/dL (31-35); MEAN CORPUSCULAR VOLUME 103.8 fL (81-99); MONOCYTES # (AUTO) 0.8 (0.2-0.8); MONOCYTES % 11.3 % (4.4-11.3); NEUTROPHILS # (AUTO) 5.7 (2.1-6.9); PLATELET COUNT 79 x10e3/uL (140-360); RED BLOOD COUNT 2.63 x10e6/uL (3.6-5.1); RED CELL DISTRIBUTION WIDTH 18.1 % (11.7-14.4)
[2020-07-18] MEDS: LACTULOSE SYRUP 20 GM/30 ML UDC PO SCH (08:35)
[2020-07-18] MEDS: FERROUS SULFATE 325 MG TAB PO SCH (08:35)
[2020-07-18] MEDS: PANTOPRAZOLE 40 MG 10ML VIAL IV SCH (08:35)
[2020-07-18] MEDS: ATENOLOL 50 MG TAB PO SCH (08:36)
[2020-07-18] MEDS: BALSAM PERU/CASTOR OIL 60 GM OINT...G. TP SCH (08:36)
[2020-07-18] MEDS: FUROSEMIDE 20 MG TAB PO SCH (08:36)
[2020-07-18] MEDS: SODIUM BICARBONATE 650 MG TAB PO SCH (08:36)
[2020-07-18 08:44] VITALS: BP 141/54
== END 2020-07-18 08:35 | disposition home or self-care (01) | DRG 442 ==
LOC: ER 21:55 → ERHOLD 22:48 → MED/SURG 23:48
PROVIDERS: ADMIT Family Medicine; ATTEND Family Medicine
PROC: 02HV33Z Insertion of Infusion Device into Superior Vena Cava, Percutaneous Approach (ICD-10-PCS; principal; 2020-07-11)
DX: R16.0 Hepatomegaly, not elsewhere classified (principal); N17.9 Acute kidney failure, unspecified; M62.82 Rhabdomyolysis; K74.60 Unspecified cirrhosis of liver; Z85.3 Personal history of malignant neoplasm of breast; Z90.12 Acquired absence of left breast and nipple; H91.90 Unspecified hearing loss, unspecified ear; E21.3 Hyperparathyroidism, unspecified; K75.81 Nonalcoholic steatohepatitis (NASH); D69.6 Thrombocytopenia, unspecified; G25.81 Restless legs syndrome; K72.90 Hepatic failure, unspecified without coma; I12.9 Hypertensive chronic kidney disease with stage 1 through stage 4 chronic kidney disease, or unspecified chronic kidney disease; N18.30 Chronic kidney disease, stage 3 unspecified
CPT/HCPCS: 36415; 36556; 70450; 71045; 74176; 74181; 74470; 76705; 76770; 76937; 77001; 77075; 80048; 80053; 82105; 82140; 82306; 82378; 82550; 82553; 82948; 83735; 83880; 83970; 84100; 84484; 85025; 85610; 86301; 86304; 93005; 97139; 99251; 99284; C1769; J2001; J2405; J2430; J2920; J7030; J7040; U0002